=== PATIENT | male | born 1950 | race Caucasian/White ===

== ENCOUNTER 2017-06-02 06:55 | Day surgery (SDC) | payer BC, OTHER ==
[2017-06-01 15:14] VITALS: BMI 32.1
--- NOTE | 2017-06-02 08:07 | HP ---
Satellite [facility] - Chief Complaint Chief Complaint: left shoulder pain History of Present Illness: left shoulder pain, weakness, decreased ROM History Source: Patient Limitations to Obtaining History: No Limitations - Past Medical History Allergies/Adverse Reactions: Allergies Allergy/AdvReac Type Severity Reaction Status Date / Time No Known Allergies Allergy Verified 06/01/17 15:14 - Current Medications Current Medications: Home Medications Medication Instructions Recorded Olmesartan Medoxomil [Benicar -] 20 mg PO DAILY 06/01/14 Atorvastatin Ca [Lipitor] 20 mg PO HS 06/01/17 Ranitidine HCl [Zantac] 150 mg PO BID 06/01/17 Satellite Physical Exam - Physical Examination Vital Signs: Vital Signs Period Temp Pulse Resp BP Sys/De La O Pulse Ox Last 24 Hr 97.4 F-97.4 F 89-89 20-20 137-137/80-80 97 General Appearance: Well Nourished ENT: Clear Lung: Clear to auscultation Heart: Regular rate & rhythm Breasts: Soft Abdomen: Soft Extremities: No edema Satellite Impression/Plan - Impression/Plan Impression: left shoulder impingement, RTC tear Operative Procedure: left shoulder arthroscopy, decompression, RTC repair Date to be Performed: 06/02/17
[2017-06-02] MEDS ORDERED: ROCURONIUM BROMIDE 50 MG/5 ML VIAL ONE (08:35)
[2017-06-02] MEDS ORDERED: PROPOFOL 20 ML ONE (08:35)
[2017-06-02] MEDS ORDERED: LIDOCAINE HCL/PF 2% SDV 5ML VIAL ONE (08:37)
[2017-06-02] MEDS ORDERED: ROPIVACAINE HCL 0.5% 30ML VIAL ONE (08:38)
[2017-06-02] MEDS ORDERED: MIDAZOLAM HCL 2 MG/2 ML SINGLE DOSE VIAL ONE ×2 (08:39)
[2017-06-02] MEDS ORDERED: ceFAZolin SODIUM 1 GM VIAL IVPB ONE (09:45)
[2017-06-02] MEDS ORDERED: ceFAZolin SODIUM 1 GM VIAL ONE (09:50)
[2017-06-02] MEDS ORDERED: DEXAMETHASONE SOD PHOSPHATE 4 MG/1 ML VIAL ONE (09:51)
[2017-06-02] MEDS ORDERED: ePHEDrine SULFATE 50 MG/1 ML AMPULE ONE ×2 (10:04→10:30)
[2017-06-02] MEDS ORDERED: ONDANSETRON 4 MG/2 ML VIAL IVPUSH PRN (10:06)
[2017-06-02] MEDS ORDERED: LACTATED RINGERS SOLUTION 1,000 ML IV SCH (10:15)
--- NOTE | 2017-06-02 11:06 | OP ---
Operative Note - Note: Operative Date: 06/02/17 Pre-Operative Diagnosis: left shoulder impingement, RTC tear Operation: left shoulder arthroscopy, decompression, RTC repair Implants: Arthrex Swivel Lock x 1, Fiber Wire x 3 Surgeon: Adi Matta Image Processing Engineer: Hitesh Friedman Anesthesiologist/CLOTH DYE RANGE OPERATOR: Ashley Maxwell Anesthesia: General Specimens Removed: shavings Estimated Blood Loss (mls): 50 Drains, Volume Out (mls): 0 Blood Volume Replaced (mls): 0 Fluid Volume Replaced (mls): 1,000 Operative Report Dictated: Yes
[2017-06-02 14:02] VITALS: PULSE 94; TEMP 98.5
[2017-06-02 14:05] VITALS: BP 133/74
--- NOTE | 2017-06-02 16:58 | OP ---
DATE OF OPERATION: 06/02/2017 PREOPERATIVE DIAGNOSIS: Left shoulder subacromial impingement and rotator cuff tear. POSTOPERATIVE DIAGNOSIS: Left shoulder subacromial impingement and rotator cuff tear. PROCEDURE: Left shoulder arthroscopy, subacromial decompression, and arthroscopic rotator cuff repair. SURGEON: Adi Matta M.D. DOT ETCHER APPRENTICE: Hitesh Friedman M.D. SECOND VOLUNTEER RECRUITMENT COORDINATOR: Cayla Khan NURSE RETAIL WIRELESS ASSOCIATE: , PARK INTERPRETIVE RANGER ANESTHESIA: Left interscalene block with LMA anesthesia. DRAINS: None. COMPLICATIONS: None. BLOOD GIVEN: None. FLUID REPLACEMENT: 1000 mL. BLOOD LOSS: 50 mL. INDICATION: This patient is a 66-year-old male with a preoperative diagnosis of left shoulder impingement syndrome and rotator cuff tear. After understanding the potential risks, complications, alternatives, benefits to surgery versus nonsurgical treatment, the patient elected to pursue this procedure. PROCEDURE: The patient was brought to the operating room, peripheral IV placed, IV sedation given. Left scalene block was performed. 2 g of IV Ancef were given. Patient was placed into the beach chair position with ample padding throughout. The left upper extremity was prepped and draped in a sterile fashion. Bony landmarks marked out with marking pin. A manipulation under anesthesia was done. It was not particularly tight. A posterior portal was established. A diagnostic glenohumeral arthroscopy is performed. Overall, the patient had an undersurface tear of the rotator cuff from the glenohumeral side. The patient's biceps tendon, glenoid, labrum, and humeral head all looked good. Therefore, our attention turned to the subacromial space. Lateral portal was established under direct visualization using a spinal needle. A number 11 scalpel blade was utilized to cut into the skin and a clean cannula introduced in the subacromial space. Patient had tremendous amount of inflammatory subacromial bursitis. This was debrided with the Arthrocare wand and the straight shaver after the extensive debridement of all the bursitis. This was revealed a large subacromial bony spur. It was very anterior. This was taken down with a 5.5-mm oval bur, and straightened up in reverse and with the shaver. After the bony and soft tissue decompression was performed, we were able to better visualize the top portion of the rotator cuff. The entire infraspinatus was intact. The supraspinatus seemed to be intact. His tear was easily anterior most portion of the supraspinatus. We were able to clean up the edges using the Scorpion needle passer to pass 3 Fiberwire sutures. We were able to pull this more anterior after we established a more anterior portal for excellent mobilization and complete coverage of the humeral head. We then looked the 6 Fiberwire tails through the Swivelock anchor, and put the Swivelock down into the more anterior rotator cuff landing site. The tails were cut, the area was inspected and looked quite good. There was complete coverage of the humeral head and the rotator cuff moved as a unit with motion of the arm. The area was copiously irrigated and washed out. All instrumentation and debris were removed, all excess saline removed, the arthroscopy port was closed with 3-0 nylon sutures covered with Aquacel. The patient was placed into a shoulder immobilizer, taken down out of the beach chair position, extubated. Total operative time was about 1 hour, there were no complications during the case. Patient was brought to the ambulatory recovery room in stable condition. Jeremias [id number]
--- NOTE | 2017-06-03 14:13 | PATH ---
Surgical Pathology Report Patient Name: ALYSHA CARVER Med. Rec. #: [id number] /Age/Gender: 1950 (Age: 66) / M Account: [id number] Location: [facility] SURGICAL Taken: 06/02/2017 Received: 06/02/2017 Reported: 06/03/2017 Physicians: Jeremias Null M.D. Specimen(s) Received LEFT SHOULDER SHAVINGS Clinical History Left rotator cuff tear Final Diagnosis SHOULDER SHAVINGS, LEFT, ARTHROSCOPY AND ROTATOR CUFF REPAIR:FRAGMENTS OF BENIGN FIBROCARTILAGINOUS TISSUE, SYNOVIUM, BONE, ADIPOSE TISSUE AND SKELETAL MUSCLE. Electronically Signed Fátima Santiago M.D. Gross Description Received in formalin, labeled "left shoulder shavings," is a 3.5 x 2.5 x 0.4 cm. aggregate of cuba-yellow soft tissue fragments. A dermatology sales representative portion is submitted in one cassette. 06/02/201706/02/2017
== END 2017-06-02 13:20 | disposition home or self-care (01) ==
LOC: JASU-SURG 06:55
PROVIDERS: ATTEND Orthopaedic Surgery
PROC: 0LQ24ZZ Repair Left Shoulder Tendon, Percutaneous Endoscopic Approach (ICD-10-PCS; 2017-06-02)
PROC: 0RNK4ZZ Release Left Shoulder Joint, Percutaneous Endoscopic Approach (ICD-10-PCS; principal; 2017-06-02 09:00)
DX: M75.42 Impingement syndrome of left shoulder (principal); M75.102 Unspecified rotator cuff tear or rupture of left shoulder, not specified as traumatic
CPT/HCPCS: 88304-TC; 94760

== ENCOUNTER 2018-10-21 15:18 | Emergency (ER) | payer OTHER, BC ==
--- NOTE | 2018-10-21 15:40 | PDOC ---
Rapid Medical Evaluation Time Seen by Provider: 10/21/18 15:36 Medical Evaluation: Allergies Allergy/AdvReac Type Severity Reaction Status Date / Time No Known Allergies Allergy Verified 06/01/17 15:14 10/21/18 15:36 HPI: Sent by PCP Dr Smith for work up of abdominal pain wants to r/o diverticulitis PE:No gross deficits ORDERS: LABS CT scan w/o PO CONTRAST Hx of Urolift 10/21/18 15:39 Discharge Disposition - Diagnosis Abdominal pain - Referrals - Patient Instructions - Post Discharge Activity
[2018-10-21 15:43] VITALS: BMI 32.6
[2018-10-21 16:40] LABS: EOS % 0.7 % (0-4.5); HEMATOCRIT 42.4 % (35.4-49); LYMPH % 11.8 % (8-40); MCH 29.2 pg (25.7-33.7); MEAN CELL VOLUME 88.6 fl (80-96); MEAN PLT VOLUME 8.9 fl (7.5-11.1); MONO % 13.8 % (3.8-10.2); NEUT % 72.7 % (42.8-82.8); PLATELET COUNT 212 K/MM3 (134-434); RBC 4.79 M/mm3 (4.00-5.60); RDW 13.9 % (11.9-15.9)
[2018-10-21 16:54] LABS: INR 1.1 (0.83-1.09)
[2018-10-21 16:59] LABS: ALBUMIN 3.5 g/dl (3.4-5.0); BILIRUBIN,TOTAL 0.6 mg/dL (0.2-1); BLOOD UREA NITROGEN 11.8 mg/dL (7-18); CALCIUM 8.9 mg/dL (8.5-10.1); POTASSIUM 4.3 mmol/L (3.5-5.1); TOT PROT 6.6 g/dl (6.4-8.2)
--- NOTE | 2018-10-21 17:17 | PDOC ---
History of Present Illness - General Chief Complaint: Pain, Acute Stated Complaint: ABDOMINAL PAIN Time Seen by Provider: 10/21/18 15:36 Past History - Past Medical History Allergies/Adverse Reactions: Allergies Allergy/AdvReac Type Severity Reaction Status Date / Time No Known Allergies Allergy Verified 06/01/17 15:14 Home Medications: Ambulatory Orders Olmesartan Medoxomil [Benicar -] 20 mg PO DAILY 06/01/14 Atorvastatin Ca [Lipitor] 20 mg PO HS 06/01/17 Ranitidine HCl [Zantac] 150 mg PO BID 06/01/17 Ciprofloxacin [Cipro -] 500 mg PO Q12H 10 Days #20 tablet 10/21/18 Cyclosporine [Restasis Multidose] 1 drop OP BID 10/21/18 Metronidazole [Flagyl] 500 mg PO TID 10 Days #30 capsule 10/21/18 Anemia: No Asthma: No Cancer: No Cardiac Disorders: No CVA: No COPD: No CHF: No Dementia: No Diabetes: No GI Disorders: Yes (acid indigestion, diverticulitis) Disorders: Yes (rx for uti) HTN: Yes Hypercholesterolemia: Yes Liver Disease: No Seizures: No Thyroid Disease: No - Surgical History Orthopedic Surgery: Yes (arthroscopy/bunion) - Suicide/Smoking/Psychosocial Hx Smoking History: Former smoker Have you smoked in the past 12 months: No If you are a former smoker, when did you quit?: 2016 Information on smoking cessation initiated: No Hx Alcohol Use: Yes (Occasional wine) Drug/Substance Use Hx: No *Physical Exam - Vital Signs Last Vital Signs Temp Pulse Resp BP Pulse Ox 98.3 F 93 H 18 142/79 98 10/21/18 15:41 10/21/18 15:41 10/21/18 15:41 10/21/18 15:41 10/21/18 15:41 ED Treatment Course - LABORATORY CBC & Chemistry Diagram: 10/21/18 14:21 10/21/18 14:21 - ADDITIONAL ORDERS Additional order review: Laboratory Results 10/21/18 10/21/18 14:21 14:21 PT with INR 13.00 INR 1.10 H Sodium 141 Potassium 4.3 Chloride 106 Carbon Dioxide 29 Anion Gap 6 L BUN 11.8 Creatinine 1.0 Est GFR (CKD-EPI)AfAm 89.23 Est GFR (CKD-EPI)NonAf 76.99 Random Glucose 101 Calcium 8.9 Total Bilirubin 0.6 AST 16 ALT 25 Alkaline Phosphatase 85 Total Protein 6.6 Albumin 3.5 Lipase 173 10/21/18 14:21 RBC 4.79 MCV 88.6 MCHC 33.0 RDW 13.9 MPV 8.9 Neutrophils % 72.7 Lymphocytes % 11.8 D Monocytes % 13.8 H Eosinophils % 0.7 Basophils % 1.0 Medical Decision Making - Medical Decision Making 10/21/18 17:44 Mr. Negron is a 68 y/o M with hx diverticulitis presenting from his outpatient PCP office for 1 week of left sided superpubic pain, concerning for diverticulitis flare. Plan for UA, CBC w/diff, and CT abdomen pelvis to evaluate for acute diverticulitis. Stable vitals, afebrile, feeling well with no pain at this time, plan for discharge after CT with close outpatient follow up for likely uncomplicated diverticulitis. *DC/Admit/Observation/Transfer Diagnosis at time of Disposition: Diverticulitis - Discharge Dispostion Disposition: HOME Condition at time of disposition: Good Decision to Admit order: No - Prescriptions Prescriptions: Ciprofloxacin [Cipro -] 500 mg PO Q12H 10 Days #20 tablet Metronidazole [Flagyl] 500 mg PO TID 10 Days #30 capsule - Referrals Referrals: Jose Merlos MD [Staff Physician] - - Patient Instructions Printed Discharge Instructions: DI for Diverticulitis Additional Instructions: You were evaluated in the Emergency Department by Dr. Joshi and Dr. Melendez for pain in your lower abdomen after your outpatient doctor was concerned for acute diverticulitis. We conducted a medical history and physical exam, as well as ordered bloodwork to look for signs of infection. We also conducted a CT scan of your abdomen to evaluate for diverticulitis. The CT scan showed diverticulitis. We are treating you with ten days of antiobiotics, please take them as directed. Make sure to avoid any alcohol intake while you are on these antibiotics. Please follow up with your GI doctor next week. Further, your CT also showed a small lesion on your liver, please follow up with your GI doctor for that in the next three months. Please return to the emergency department if you develop any fevers, chills, worsening abdominal pain, or develop any other symptoms that you find concerning. - Post Discharge Activity
--- NOTE | 2018-10-21 18:05 | PDOC ---
Documentation entered by Hailey Nguyễn SCRIBE, acting as scribe for Brenda Melendez MD. Brenda Melendez MD: This documentation has been prepared by the Delma holt Sammi, SCRIBE, under my direction and personally reviewed by me in its entirety. I confirm that the documentation accurately reflects all work, treatment, procedures, and medical decision making performed by me. Attending Attestation - Resident Resident Name: MadelynChaim - ED Attending Attestation I have performed the following: I have examined & evaluated the patient, The case was reviewed & discussed with the resident, I agree w/resident's findings & plan, Exceptions are as noted - HPI HPI: 10/21/18 18:04 The patient is a 68 year old male, with a significant PMH of , who was sent to the emergency department by PCP Dr. Smith for CT of abdomen to rule out diverticulitis. The patient complains of left lower quadrant pain. He notes last episode of diverticulitis with antibiotics several years ago. The patient does not recall how many episodes of diverticulitis he has experienced. Denies fever. - Physicial Exam PE: 10/21/18 17:43 GENERAL: The patient is in no acute distress. ENT: Ears normal, nares patent, oropharynx clear without exudates. Moist mucous membranes. NECK: Normal range of motion, supple LUNGS: Breath sounds equal, clear to auscultation bilaterally. No wheezes, and no crackles. HEART:Regular rate and rhythm, normal S1 and S2 without murmur, rub or gallop. ABDOMEN: Soft, protuberant, LLQ tenderness, no involuntary guarding or rebound EXTREMITIES: Normal range of motion, no edema. NEUROLOGICAL: Cranial nerves II through XII grossly intact. Normal speech. No focal neurological deficits. SKIN: Warm, Dry, normal turgor, no rashes or lesions noted. - Medical Decision Making 10/21/18 17:58 68 yo M h/o HTN prior episodes of diverticulitis who presents to the ER with a complaint of LLQ Pain Pt has had diverticulitis in the past No fevers or chills DD: diverticulitis (complicated vs. uncomplicated), colitis, unlikely UTI, obstructing stone or pyelonephritis Will do: Labs UA CT abd and pelvis Re assess 10/21/18 18:00 Laboratory Tests 10/21/18 10/21/18 10/21/18 14:21 14:21 14:21 WBC 9.0 Hgb 14.0 Hct 42.4 Plt Count 212 INR 1.10 H BUN 11.8 Creatinine 1.0 10/21/18 18:05 CT pending Signed out to Overnight team
[2018-10-21 18:13] LABS: EPI CELLS 0.2 /HPF (0-5/HPF); HYALINE CASTS 0 /lpf (0-8); PH,URINE 8.5 (5.0-8.0); URINE APPEARANCE CLOUDY; URINE BACTERIA 1.7 /hpf (NEGATIVE); URINE BILIRUBIN NEGATIVE (NEGATIVE); URINE COLOR YELLOW; URINE GLUCOSE (UA) NEGATIVE (NEGATIVE); URINE KETONE NEGATIVE (NEGATIVE); URINE LEUK ESTERASE TRACE (NEGATIVE); URINE NITRITE NEGATIVE (NEGATIVE); URINE PROTEIN NEGATIVE (NEGATIVE); URINE RBC 5 /hpf (0-4); URINE UROBILINOGEN 0.2 mg/dL (0.2-1.0); URINE WBC 2 /hpf (0-5)
[2018-10-21 22:23] VITALS: TEMP 98.4
[2018-10-21 22:34] VITALS: BP 148/73; PULSE 82
--- NOTE | 2018-10-23 13:43 | EKG ---
Test Reason : Blood Pressure : / mmHG Vent. Rate : 087 BPM Atrial Rate : 087 BPM P-R Int : 174 ms QRS Dur : 094 ms QT Int : 366 ms P-R-T Axes : 050 038 054 degrees QTc Int : 440 ms NORMAL SINUS RHYTHM LEFT ATRIAL ENLARGEMENT BORDERLINE ECG WHEN COMPARED WITH ECG OF 01-JUN-2014 17:05, NO SIGNIFICANT CHANGE WAS FOUND Confirmed by MD HELEN, MICKEY ([id number]) on 10/23/2018 1:42:31 PM Referred By: Confirmed By:MICKEY CERVANTES MD
== END 2018-10-21 22:36 | disposition home or self-care (01) ==
LOC: JER 15:18
DX: K57.32 Diverticulitis of large intestine without perforation or abscess without bleeding (principal); I10 Essential (primary) hypertension; E78.00 Pure hypercholesterolemia, unspecified; K21.9 Gastro-esophageal reflux disease without esophagitis; Z87.440 Personal history of urinary (tract) infections
CPT/HCPCS: 36415; 74177-TC; 80053; 81003; 83690; 85025; 85610; 93005; 93010; 99282-25

== ENCOUNTER 2019-04-05 10:45 | Emergency (ER) | payer OTHER, BC ==
[2019-04-05 11:04] VITALS: BMI 30.7
[2019-04-05 13:14] LABS: EOS % 0.7 % (0-4.5); HEMATOCRIT 44.6 % (35.4-49); HEMOGLOBIN 14.9 GM/dL (11.7-16.9); LYMPH % 13.5 % (8-40); MCH 29.6 pg (25.7-33.7); MCHC 33.4 g/dl (32.0-35.9); MEAN CELL VOLUME 88.6 fl (80-96); MEAN PLT VOLUME 8.8 fl (7.5-11.1); MONO % 9.1 % (3.8-10.2); NEUT % 75.7 % (42.8-82.8); PH,URINE 8.5 (5.0-8.0); PLATELET COUNT 298 K/MM3 (134-434); RBC 5.04 M/mm3 (4.00-5.60); RDW 14.1 % (11.9-15.9); URINE APPEARANCE TURBID; URINE BILIRUBIN NEGATIVE (NEGATIVE); URINE COLOR YELLOW; URINE GLUCOSE (UA) NEGATIVE (NEGATIVE); URINE KETONE NEGATIVE (NEGATIVE); URINE LEUK ESTERASE NEGATIVE (NEGATIVE); URINE NITRITE NEGATIVE (NEGATIVE); URINE PROTEIN NEGATIVE (NEGATIVE); URINE UROBILINOGEN 0.2 mg/dL (0.2-1.0); WHITE BLOOD COUNT 7.9 K/mm3 (4.0-10.0)
--- NOTE | 2019-04-05 13:34 | PDOC ---
Documentation entered by Zaida Jimenes SCRIBE, acting as scribe for Brenda Melendez MD. Brenda Melendez MD: This documentation has been prepared by the Jalil holt Xhesika, SCRIBE, under my direction and personally reviewed by me in its entirety. I confirm that the documentation accurately reflects all work, treatment, procedures, and medical decision making performed by me. History of Present Illness - General Chief Complaint: Pain Stated Complaint: LOWER ABD PAIN Time Seen by Provider: 04/05/19 12:35 History Source: Patient Exam Limitations: No Limitations - History of Present Illness Initial Comments: 04/05/19 12:54 The patient is a 68 year old male, with a significant PMH of diverticulitis and high cholesterol who presents to the emergency department for left lower quadrant abdominal pain for several days. Patient called Dr. Merlos on Wednesday03/04/19, and was prescribed abx for diverticulitis. Pt reports loose stools and severe pain this morning, promoting his arrival to the ED. He notes his symptoms are similar to his previous diverticulitis. The patient denies chest pain, shortness of breath, headache and dizziness. Denies fever, chills, cough, nausea, vomiting, and constipation. Denies dysuria , frequency, urgency and hematuria. Allergies: NKDA PCP: Fátima Hernandez Past History - Past Medical History Allergies/Adverse Reactions: Allergies Allergy/AdvReac Type Severity Reaction Status Date / Time No Known Allergies Allergy Verified 04/05/19 11:01 Home Medications: Ambulatory Orders Atorvastatin Ca [Lipitor] 10 mg PO HS 06/01/17 Metronidazole [Flagyl] 500 mg PO TID 10 Days #30 capsule 10/21/18 Bifidobacterium Infantis [Align] 10.5 mg PO DAILY #30 tab.chew 04/05/19 Famotidine 20 mg PO DAILY 04/05/19 Levofloxacin [Levaquin] 500 mg PO DAILY 04/05/19 Anemia: No Asthma: No Cancer: No Cardiac Disorders: No CVA: No COPD: No CHF: No Dementia: No Diabetes: No GI Disorders: Yes (acid indigestion, diverticulitis) Disorders: Yes (rx for uti) HTN: Yes Hypercholesterolemia: Yes Liver Disease: No Seizures: No Thyroid Disease: No - Surgical History Orthopedic Surgery: Yes (arthroscopy/bunion) - Psycho Social/Smoking Cessation Hx Smoking History: Never smoked Have you smoked in the past 12 months: No If you are a former smoker, when did you quit?: 2016 Information on smoking cessation initiated: No Hx Alcohol Use: No Drug/Substance Use Hx: No Review of Systems - Review of Systems Able to Perform ROS?: Yes Comments:: 04/05/19 12:55 GENERAL/CONSTITUTIONAL: No fever or chills. No weakness. HEAD, EYES, EARS, NOSE AND THROAT: No change in vision. No ear pain or discharge. No sore throat. CARDIOVASCULAR: No chest pain or shortness of breath. RESPIRATORY: No cough, wheezing, or hemoptysis. GASTROINTESTINAL: + diarrhea. No nausea, vomiting, or constipation. GENITOURINARY: No dysuria, frequency, or change in urination. MUSCULOSKELETAL: + left lower quadrant abdominal pain. No joint or muscle swelling or pain. No neck or back pain. SKIN: No rash NEUROLOGIC: No headache, vertigo, loss of consciousness, or change in strength/ sensation. ENDOCRINE: No increased thirst. No abnormal weight change. HEMATOLOGIC/LYMPHATIC: No anemia, easy bleeding, or history of blood clots. ALLERGIC/IMMUNOLOGIC: No hives or skin allergy. *Physical Exam - Vital Signs Last Vital Signs Temp Pulse Resp BP Pulse Ox 98.5 F 89 17 144/91 98 04/05/19 11:02 04/05/19 11:02 04/05/19 11:02 04/05/19 11:02 04/05/19 12:13 - Physical Exam 04/05/19 12:56 GENERAL: The patient is in no acute distress. HEAD: Normal with no signs of trauma. EYES: PERRLA, EOMI, sclera anicteric, conjunctiva clear. ENT: Ears normal, nares patent, oropharynx clear without exudates. Moist mucous membranes. NECK: Normal range of motion, supple without lymphadenopathy, JVD, or masses. LUNGS: Breath sounds equal, clear to auscultation bilaterally. No wheezes, and no crackles. HEART:Regular rate and rhythm, normal S1 and S2 without murmur, rub or gallop. ABDOMEN: + LLQ abdominal tenderness to palpation. Soft, normoactive bowel sounds. No guarding, no rebound. No masses palpable. EXTREMITIES: Normal range of motion, no edema. No clubbing or cyanosis. No erythema, or tenderness. NEUROLOGICAL: Cranial nerves II through XII grossly intact. Normal speech. No focal neurological deficits. MUSCULOSKELETAL: Back non-tender to palpation, no CVA tenderness SKIN: Warm, Dry, normal turgor, no rashes or lesions noted. ED Treatment Course - LABORATORY CBC & Chemistry Diagram: 04/05/19 13:00 04/05/19 13:00 Medical Decision Making - Medical Decision Making 04/05/19 15:42 68-year-old male with a history of diverticulitis presenting to the emergency department due to left lower quadrant tenderness. Symptoms have been present since last week. Spoke with his GI doctor 3 days ago who started antibiotics. Patient increased abdominal pain, loose stools today, which prompted his visit to the ER No fevers or chills Examination reveals left lower quadrant tenderness No voluntary guarding or rebound 04/05/19 15:43 Laboratory Tests 04/05/19 04/05/19 04/05/19 13:00 13:00 13:00 WBC 7.9 Hgb 14.9 Hct 44.6 Plt Count 298 D BUN 15.1 Creatinine 1.0 Urine Ketones Negative Urine Blood Negative Ur Leukocyte Esterase Negative CT performed: Demonstrates uncomplicated sigmoid diverticulitis Call placed to patient's GI doctor We will plan to discharge home Continue antibiotics as already prescribed Would start Align Clinical impression: Acute uncomplicated diverticulitis, initial presentation Case reviewed with pt GI doctor after he left the ER Pt told to follow up with Dr Mai as an outpatient Return to the ER for fevers, chills, worsening abdominal pain, inability to tolerate po Discharge - Discharge Information Problems reviewed: Yes Clinical Impression/Diagnosis: Diverticulitis Condition: Stable Disposition: HOME - Admission No - Additional Discharge Information Prescriptions: Bifidobacterium Infantis [Align] 10.5 mg PO DAILY #30 tab.chew - Follow up/Referral Referrals: Fátima Diaz MD [Primary Care Provider] - - Patient Discharge Instructions Patient Printed Discharge Instructions: DI for Diverticulitis Additional Instructions: Mr. Negron, Thank you for coming into the emergency department today Please continue taking antibiotics as prescribed Please also start taking a probiotic like Align Please monitor yourself for fevers or chills, worse abdominal pain Please be sure to follow-up with Dr. Merlos in the office Please feel free to return to the ER for any other concerns or complaints - Post Discharge Activity
[2019-04-05 13:50] LABS: ALBUMIN 3.8 g/dl (3.4-5.0); BILIRUBIN,TOTAL 0.5 mg/dL (0.2-1); BLOOD UREA NITROGEN 15.1 mg/dL (7-18); CALCIUM 9.7 mg/dL (8.5-10.1); POTASSIUM 4.8 mmol/L (3.5-5.1); TOT PROT 6.9 g/dl (6.4-8.2)
[2019-04-05 16:21] VITALS: BP 129/88; PULSE 81; TEMP 98.1
== END 2019-04-05 16:23 | disposition home or self-care (01) ==
LOC: JER 10:45
DX: K57.92 Diverticulitis of intestine, part unspecified, without perforation or abscess without bleeding (principal); I10 Essential (primary) hypertension; E78.00 Pure hypercholesterolemia, unspecified; Z87.19 Personal history of other diseases of the digestive system
CPT/HCPCS: 36415; 74177-TC; 80053; 81003; 85025; 87086; 99284-25; Q9967

== ENCOUNTER 2020-03-05 06:26 | Inpatient (IN) | payer OTHER, BC ==
[2020-02-27 10:43] VITALS: BMI 32.2
[2020-03-05] MEDS ORDERED: CELECOXIB 200 MG CAPSULE PO ONE (07:26)
[2020-03-05] MEDS ORDERED: TRANEXAMIC ACID 1000 MG/10 ML VIAL IVPUSH ONE (07:26)
[2020-03-05] MEDS ORDERED: CEFAZOLIN 3 GM in DEXTROSE 5%-WATER - 100 ML IVPB ONE (07:26)
[2020-03-05] MEDS ORDERED: ceFAZolin SODIUM 1 GM VIAL ONE ×3 (07:35→17:41)
[2020-03-05] MEDS ORDERED: VANCOMYCIN 1,000 MG VIAL (RESTRICTED TO ID ONLY) ONE (07:35)
[2020-03-05] MEDS ORDERED: BUPIVACAINE LIPOSOME/PF (EXPAREL) 266 MG/20 ML VIAL ONE (08:42)
[2020-03-05] MEDS ORDERED: MIDAZOLAM HCL 2 MG/2 ML SINGLE DOSE VIAL ONE ×3 (08:42→10:14)
[2020-03-05] MEDS ORDERED: SODIUM CHLORIDE 0.9% P/F 10 ML VIAL IJ ONE ×2 (08:43→10:35)
[2020-03-05] MEDS ORDERED: BUPIVACAINE HCL/PF 0.5% (5MG/ML) 10 ML VIAL ONE (09:17)
[2020-03-05] MEDS ORDERED: SUCCINYLCHOLINE CHLORIDE 200 MG/10 ML SYRINGE ONE (09:18)
[2020-03-05] MEDS ORDERED: PROPOFOL 20 ML ONE ×3 (09:18)
[2020-03-05] MEDS ORDERED: MAGNESIUM HYDROX 2400MG/30ML ORAL SUSPENSION 30 ML CUP PO PRN (10:09)
[2020-03-05] MEDS ORDERED: ONDANSETRON 4 MG/2 ML VIAL IVPUSH PRN ×3 (10:09→12:10)
[2020-03-05] MEDS ORDERED: MAG HYDROX/AL HYDROX/SIMETH 30 ML UNIT-DOSE CUP PO PRN (10:09)
[2020-03-05] MEDS ORDERED: ONDANSETRON 4 MG/2 ML VIAL ONE (10:11)
[2020-03-05] MEDS ORDERED: TRANEXAMIC ACID 1000 MG/10 ML VIAL ONE (10:11)
[2020-03-05] MEDS ORDERED: DEXAMETHASONE SOD PHOSPHATE 4 MG/1 ML VIAL ONE (10:11)
[2020-03-05] MEDS ORDERED: LACTATED RINGERS SOLUTION 1,000 ML IV SCH (10:15)
[2020-03-05] MEDS ORDERED: ePHEDrine SULFATE 50 MG/1 ML AMPULE ONE (10:34)
[2020-03-05] MEDS ORDERED: PROMETHAZINE HCL 25 MG/1 ML VIAL IVPUSH PRN (11:58)
[2020-03-05] MEDS: oxyCODONE HCL 5 MG TABLET PO PRN ×3 (15:37→21:15)
[2020-03-05] MEDS: ACETAMINOPHEN 325 MG TABLET (FP) PO SCH ×2 (15:38→18:04)
[2020-03-05] MEDS ORDERED: DEXTROSE 5%-WATER 100 ML IVPB ONE (17:41)
[2020-03-05] MEDS: CEFAZOLIN 3 GM in DEXTROSE 5%-WATER 100 ML IVPB SCH (17:54)
[2020-03-05] MEDS ORDERED: CEFAZOLIN 3 GM in DEXTROSE 5%-WATER - 100 ML IVPB SCH (18:00)
[2020-03-05] MEDS: SENNOSIDES/DOCUSATE COMBO (SENNA PLUS) TABLET (UD) PO SCH (21:15)
[2020-03-05] MEDS: ATORVASTATIN CA 20 MG TABLET (FP) PO SCH (21:15)
[2020-03-05] MEDS: oxyCODONE HCL 10 MG SUSTAINED ACTING TABLET PO SCH (21:16)
[2020-03-06] MEDS ORDERED: DEXTROSE 5%-WATER 100 ML IVPB ONE (01:41)
[2020-03-06] MEDS ORDERED: ceFAZolin SODIUM 1 GM VIAL ONE (01:41)
[2020-03-06] MEDS: oxyCODONE HCL 5 MG TABLET PO PRN ×3 (01:49→15:38)
[2020-03-06] MEDS: CEFAZOLIN 3 GM in DEXTROSE 5%-WATER 100 ML IVPB SCH (01:50)
[2020-03-06] MEDS: ACETAMINOPHEN 325 MG TABLET (FP) PO SCH ×4 (01:55→18:56)
[2020-03-06 07:55] LABS: HEMATOCRIT 40.4 % (35.4-49); MCH 29.1 pg (25.7-33.7); MCHC 32.2 g/dl (32.0-35.9); MEAN CELL VOLUME 90.2 fl (80-96); MEAN PLT VOLUME 8.3 fl (7.5-11.1); PLATELET COUNT 270 K/MM3 (134-434); RBC 4.48 M/mm3 (4.00-5.60); RDW 12.7 % (11.9-15.9); WHITE BLOOD COUNT 10.6 K/mm3 (4.0-10.8)
[2020-03-06] MEDS: FERROUS SO4 325 MG TABLET (FP) PO SCH (09:11)
[2020-03-06] MEDS: ASPIRIN 325 MG TABLET PO SCH (09:11)
[2020-03-06] MEDS: oxyCODONE HCL 10 MG SUSTAINED ACTING TABLET PO SCH ×2 (09:12→21:15)
[2020-03-06] MEDS: PANTOPRAZOLE 40 MG TABLET PO SCH (09:12)
[2020-03-06] MEDS: LOSARTAN POTASSIUM 50 MG TABLET PO SCH (09:12)
[2020-03-06] MEDS: MULTIVITAMINS (DAILY MVI) TABLET (FP) PO SCH (09:12)
[2020-03-06] MEDS: SENNOSIDES/DOCUSATE COMBO (SENNA PLUS) TABLET (UD) PO SCH ×2 (09:12→21:17)
[2020-03-06] MEDS ORDERED: FAMOTIDINE 20 MG TABLET PO SCH ×2 (10:00)
[2020-03-06] MEDS: ATORVASTATIN CA 20 MG TABLET (FP) PO SCH (21:16)
[2020-03-06] MEDS ORDERED: LOCK ITEM NR ONE (23:52)
[2020-03-07] MEDS: ACETAMINOPHEN 325 MG TABLET (FP) PO SCH ×2 (00:20→05:39)
[2020-03-07 07:55] LABS: HEMATOCRIT 39.9 % (35.4-49); HEMOGLOBIN 13.1 GM/dl (11.7-16.9); MCHC 32.8 g/dl (32.0-35.9); MEAN CELL VOLUME 91.3 fl (80-96); MEAN PLT VOLUME 8.9 fl (7.5-11.1); PLATELET COUNT 274 K/MM3 (134-434); RBC 4.37 M/mm3 (4.00-5.60); RDW 13.1 % (11.9-15.9); WHITE BLOOD COUNT 8.9 K/mm3 (4.0-10.8)
[2020-03-07] MEDS: oxyCODONE HCL 5 MG TABLET PO PRN (08:33)
[2020-03-07] MEDS: ASPIRIN 325 MG TABLET PO SCH (08:33)
[2020-03-07 09:14] VITALS: BP 115/61; PULSE 110; TEMP 98.8
[2020-03-07] MEDS: SENNOSIDES/DOCUSATE COMBO (SENNA PLUS) TABLET (UD) PO SCH (10:31)
[2020-03-07] MEDS: LOSARTAN POTASSIUM 50 MG TABLET PO SCH (10:32)
[2020-03-07] MEDS: oxyCODONE HCL 10 MG SUSTAINED ACTING TABLET PO SCH (10:32)
[2020-03-07] MEDS: FERROUS SO4 325 MG TABLET (FP) PO SCH (10:32)
[2020-03-07] MEDS: PANTOPRAZOLE 40 MG TABLET PO SCH (10:33)
[2020-03-07] MEDS: MULTIVITAMINS (DAILY MVI) TABLET (FP) PO SCH (10:33)
== END 2020-03-07 12:30 | disposition home health service (06) | DRG 470 ==
LOC: FM/S 06:26
PROVIDERS: ADMIT Orthopaedic Surgery; ATTEND Orthopaedic Surgery
PROC: 8E0Y0CZ Robotic Assisted Procedure of Lower Extremity, Open Approach (ICD-10-PCS; 2020-03-05)
PROC: 0SRC0JA Replacement of Right Knee Joint with Synthetic Substitute, Uncemented, Open Approach (ICD-10-PCS; principal; 2020-03-05 10:17)
DX: M17.11 Unilateral primary osteoarthritis, right knee (principal); E78.5 Hyperlipidemia, unspecified; I10 Essential (primary) hypertension; K57.90 Diverticulosis of intestine, part unspecified, without perforation or abscess without bleeding
CPT/HCPCS: 36415; 73560-TC-RT-FY; 85027; 88304-TC; 88311-TC; 94760; 97010-GP; 97116-GP; 97162-GP

== ENCOUNTER 2020-06-14 06:30 | Day surgery (SDC) | payer OTHER, BC ==
[2020-06-12 14:48] VITALS: BMI 30.8
[2020-06-14 08:10] VITALS: TEMP 97.8
[2020-06-14 10:41] VITALS: BP 128/70; PULSE 82
== END 2020-06-14 10:30 | disposition home or self-care (01) ==
LOC: JASU-ENDO 06:30
PROVIDERS: ATTEND Internal Medicine Gastroenterology
PROC: 0DBL8ZX Excision of Transverse Colon, Via Natural or Artificial Opening Endoscopic, Diagnostic (ICD-10-PCS; 2020-06-14)
PROC: 0DBL8ZX Excision of Transverse Colon, Via Natural or Artificial Opening Endoscopic, Diagnostic (ICD-10-PCS; 2020-06-14)
PROC: 0DBN8ZX Excision of Sigmoid Colon, Via Natural or Artificial Opening Endoscopic, Diagnostic (ICD-10-PCS; principal; 2020-06-14 08:30)
DX: Z86.010 Personal history of colon polyps (principal); K51.50 Left sided colitis without complications; K57.92 Diverticulitis of intestine, part unspecified, without perforation or abscess without bleeding; K57.30 Diverticulosis of large intestine without perforation or abscess without bleeding; K57.31 Diverticulosis of large intestine without perforation or abscess with bleeding; D12.3 Benign neoplasm of transverse colon; D12.5 Benign neoplasm of sigmoid colon; K64.8 Other hemorrhoids; N40.0 Benign prostatic hyperplasia without lower urinary tract symptoms
CPT/HCPCS: 88305-TC; 88312-TC

== ENCOUNTER 2020-12-27 08:33 | Emergency (ER) | payer BC, OTHER ==
[2020-12-27 08:40] VITALS: BP 128/87; TEMP 97.7; BMI 29.8
[2020-12-27] MEDS ORDERED: ACETAMINOPHEN 500 MG TABLET (FP) PO ONE (09:44)
[2020-12-27] MEDS ORDERED: ACETAMINOPHEN 500 MG TABLET (FP) ONE (09:48)
[2020-12-27 10:31] LABS: EPI CELLS 5 /uL (0-25.1); HYALINE CASTS 0 /uL (0-3.1); PH,URINE >= 9.0 (5.0-8.0); URINE APPEARANCE CLEAR; URINE BACTERIA 17 /uL (0-1359); URINE BILIRUBIN NEGATIVE (NEGATIVE); URINE COLOR YELLOW; URINE GLUCOSE (UA) NEGATIVE (NEGATIVE); URINE KETONE NEGATIVE (NEGATIVE); URINE LEUK ESTERASE TRACE (NEGATIVE); URINE NITRITE NEGATIVE (NEGATIVE); URINE PROTEIN NEGATIVE (NEGATIVE); URINE RBC 1 /uL (0-23.9); URINE UROBILINOGEN 0.2 mg/dL (0.2-1.0); URINE WBC 17 /uL (0-25.8)
[2020-12-27 10:43] VITALS: PULSE 88
== END 2020-12-27 11:20 | disposition home or self-care (01) ==
LOC: JER 08:33
DX: M79.10 Myalgia, unspecified site (principal)
CPT/HCPCS: 71046-TC-FY; 76775-TC; 81003; 99284-25

== ENCOUNTER 2021-05-23 18:32 | Emergency (ER) | payer OTHER, BC ==
[2021-05-23 18:48] VITALS: TEMP 98.2; BMI 29.8
[2021-05-23 19:56] LABS: BASO % 0.6 % (0-2.0); EOS % 0.4 % (0-4.5); HEMATOCRIT 41.7 % (35.4-49); HEMOGLOBIN 14.4 GM/dL (11.7-16.9); LYMPH % 10.3 % (8-40); MCH 30.3 pg (25.7-33.7); MCHC 34.6 g/dl (32.0-35.9); MEAN CELL VOLUME 87.7 fl (80-96); MEAN PLT VOLUME 8.4 fl (7.5-11.1); MONO % 9.3 % (3.8-10.2); NEUT % 79.4 % (42.8-82.8); PLATELET COUNT 261 10^3/uL (134-434); RBC 4.75 M/mm3 (4.00-5.60); RDW 13.9 % (11.9-15.9); WHITE BLOOD COUNT 10.6 K/mm3 (4.0-10.0)
[2021-05-23 19:57] LABS: EPI CELLS 5 /uL (0-25.1); HYALINE CASTS 0 /uL (0-3.1); PH,URINE 8.5 (5.0-8.0); URINE APPEARANCE CLEAR; URINE BACTERIA 2 /uL (0-1359); URINE BILIRUBIN NEGATIVE (NEGATIVE); URINE COLOR YELLOW; URINE GLUCOSE (UA) NEGATIVE (NEGATIVE); URINE KETONE NEGATIVE (NEGATIVE); URINE LEUK ESTERASE 1+ (NEGATIVE); URINE NITRITE NEGATIVE (NEGATIVE); URINE PROTEIN NEGATIVE (NEGATIVE); URINE RBC 3 /uL (0-23.9); URINE UROBILINOGEN 0.2 mg/dL (0.2-1.0); URINE WBC 47 /uL (0-25.8)
[2021-05-23 20:14] LABS: ALBUMIN 3.9 g/dl (3.4-5.0); BLOOD UREA NITROGEN 10.4 mg/dL (7-18); CALCIUM 9.9 mg/dL (8.5-10.1)
[2021-05-23 20:17] LABS: CREATININE 1.1 mg/dL (0.55-1.3)
[2021-05-23 20:19] LABS: BILIRUBIN,TOTAL 0.6 mg/dL (0.2-1); TOT PROT 7.1 g/dl (6.4-8.2)
[2021-05-23 22:52] VITALS: BP 130/70; PULSE 88
== END 2021-05-23 22:52 | disposition home or self-care (01) ==
LOC: JER 18:32
DX: E04.1 Nontoxic single thyroid nodule (principal); W19.XXXA Unspecified fall, initial encounter; Y92.9 Unspecified place or not applicable
CPT/HCPCS: 36415; 70450-TC; 71045-TC-FY; 72125-TC; 80053; 81003; 85025; 93005; 93010; 99284-25

== ENCOUNTER 2021-08-15 04:13 | Day surgery (SDC) | payer OTHER, BC ==
[2021-08-13 13:07] VITALS: BMI 30.7
[2021-08-15] MEDS ORDERED: LIDOCAINE HCL 1% PRESERVATIVE FREE - 30ML VIAL IJ ONE (11:00)
[2021-08-15] MEDS ORDERED: IOHEXOL 180 MG/1 ML ML IJ ONE (11:02)
[2021-08-15] MEDS ORDERED: BUPIVACAINE HCL/PF 0.75% 10 ML VIAL MM ONE (11:05)
[2021-08-15 13:10] VITALS: TEMP 98.1
[2021-08-15 13:27] VITALS: BP 150/80; PULSE 80
== END 2021-08-15 11:40 | disposition home or self-care (01) ==
LOC: JASU-SURG 04:13
PROVIDERS: ATTEND Pain Medicine Pain Medicine
PROC: BR16YZZ Fluoroscopy of Lumbar Facet Joint(s) using Other Contrast (ICD-10-PCS; 2021-08-15)
PROC: 3E0T3BZ Introduction of Anesthetic Agent into Peripheral Nerves and Plexi, Percutaneous Approach (ICD-10-PCS; principal; 2021-08-15 12:30)
DX: M48.16 Ankylosing hyperostosis [Forestier], lumbar region (principal)
CPT/HCPCS: 76000-TC-FY

== ENCOUNTER 2021-09-07 12:58 | Emergency (ER) | payer OTHER, BC ==
[2021-09-07 13:02] VITALS: BMI 29.8
[2021-09-07] MEDS ORDERED: ACETAMINOPHEN 1000 MG/100 ML BAG IVPB ONE (13:59)
[2021-09-07] MEDS ORDERED: PANTOPRAZOLE SODIUM 40 MG VIAL IVPUSH ONE (14:00)
[2021-09-07] MEDS ORDERED: ACETAMINOPHEN INJECTION 100 ML IVPB ONE (14:17)
[2021-09-07] MEDS ORDERED: PANTOPRAZOLE SODIUM 40 MG VIAL ONE (14:17)
[2021-09-07 14:52] LABS: BASO % 0.5 % (0-2.0); EOS % 0.1 % (0-4.5); HEMATOCRIT 43.9 % (35.4-49); HEMOGLOBIN 14.2 GM/dL (11.7-16.9); LYMPH % 8.3 % (8-40); MCH 28.5 pg (25.7-33.7); MCHC 32.4 g/dl (32.0-35.9); MEAN CELL VOLUME 87.8 fl (80-96); MEAN PLT VOLUME 8.4 fl (7.5-11.1); NEUT % 79.1 % (42.8-82.8); PLATELET COUNT 319 10^3/uL (134-434); WHITE BLOOD COUNT 11.3 K/mm3 (4.0-10.0)
[2021-09-07 14:55] LABS: EPI CELLS 8 /uL (0-25.1); HYALINE CASTS 3 /uL (0-3.1); URINE APPEARANCE TURBID; URINE BACTERIA 13 /uL (0-1359); URINE BILIRUBIN NEGATIVE (NEGATIVE); URINE COLOR YELLOW; URINE GLUCOSE (UA) NEGATIVE (NEGATIVE); URINE KETONE NEGATIVE (NEGATIVE); URINE LEUK ESTERASE TRACE (NEGATIVE); URINE NITRITE NEGATIVE (NEGATIVE); URINE PROTEIN NEGATIVE (NEGATIVE); URINE RBC 32 /uL (0-23.9); URINE WBC 16 /uL (0-25.8)
[2021-09-07 15:04] LABS: INR 1.21 (0.83-1.09)
[2021-09-07] MEDS ORDERED: MAGNESIUM CITRATE 300 ML BOTTLE PO ONE (15:07)
[2021-09-07] MEDS ORDERED: MAGNESIUM CITRATE 300 ML BOTTLE ONE (15:12)
[2021-09-07 15:15] LABS: ALBUMIN 3.3 g/dl (3.4-5.0); BLOOD UREA NITROGEN 12.5 mg/dL (7-18)
[2021-09-07 15:18] LABS: CREATININE 0.9 mg/dL (0.55-1.3)
[2021-09-07 15:20] LABS: BILIRUBIN,TOTAL 0.9 mg/dL (0.2-1); TOT PROT 6.8 g/dl (6.4-8.2)
[2021-09-07] MEDS ORDERED: metroNIDAZOLE 500 MG TABLET PO ONE (18:27)
[2021-09-07] MEDS ORDERED: CIPROFLOXACIN 500 MG TABLET (RESTRICTED TO ID) PO ONE (18:27)
[2021-09-07 18:47] VITALS: BP 140/88; PULSE 89; TEMP 97.9
== END 2021-09-07 18:48 | disposition home or self-care (01) ==
LOC: JER 12:58
PROC: 3E033GC Introduction of Other Therapeutic Substance into Peripheral Vein, Percutaneous Approach (ICD-10-PCS; principal; 2021-09-07)
DX: K57.92 Diverticulitis of intestine, part unspecified, without perforation or abscess without bleeding (principal)
CPT/HCPCS: 36415; 74176-TC; 80053; 81003; 83690; 85025; 85610; 99285-25

== ENCOUNTER 2021-09-18 17:19 | Inpatient (IN) | payer OTHER, BC ==
[2021-09-18 17:43] VITALS: BMI 29.7
[2021-09-18 21:22] LABS: BASO % 0.4 % (0-2.0); EOS % 0.2 % (0-4.5); HEMATOCRIT 40.2 % (35.4-49); HEMOGLOBIN 13.6 GM/dL (11.7-16.9); LYMPH % 7.4 % (8-40); MCH 28.8 pg (25.7-33.7); MCHC 33.9 g/dl (32.0-35.9); MEAN CELL VOLUME 84.9 fl (80-96); MEAN PLT VOLUME 8.1 fl (7.5-11.1); MONO % 9.1 % (3.8-10.2); NEUT % 82.9 % (42.8-82.8); PLATELET COUNT 383 10^3/uL (134-434); RBC 4.73 M/mm3 (4.00-5.60)
[2021-09-18 21:31] LABS: EPI CELLS >36 /uL (0-25.1); HYALINE CASTS 6 /uL (0-3.1); PH,URINE 6.5 (5.0-8.0); URINE APPEARANCE CLEAR; URINE BACTERIA 20 /uL (0-1359); URINE BILIRUBIN NEGATIVE (NEGATIVE); URINE COLOR DK YELLOW; URINE GLUCOSE (UA) NEGATIVE (NEGATIVE); URINE KETONE 2+ (NEGATIVE); URINE LEUK ESTERASE 2+ (NEGATIVE); URINE NITRITE NEGATIVE (NEGATIVE); URINE PROTEIN NEGATIVE (NEGATIVE); URINE RBC 12 /uL (0-23.9); URINE UROBILINOGEN 0.2 mg/dL (0.2-1.0); URINE WBC 267 /uL (0-25.8)
[2021-09-18 21:34] LABS: INR 1.39 (0.83-1.09)
[2021-09-18 21:37] LABS: ACTIVATED PTT 30.1 SECONDS (25.2-36.5)
[2021-09-18 21:45] LABS: ALBUMIN 3.1 g/dl (3.4-5.0); MAGNESIUM 2.4 mg/dL (1.8-2.4)
[2021-09-18 21:48] LABS: CREATININE 0.9 mg/dL (0.55-1.3)
[2021-09-18 21:49] LABS: BILIRUBIN,TOTAL 0.5 mg/dL (0.2-1); TOT PROT 6.5 g/dl (6.4-8.2)
[2021-09-19] MEDS ORDERED: PIPERACILLIN/TAZOB 3.375 GM 3.375 GM/50 ML BAG IVPB ONE (03:24)
[2021-09-19] MEDS: PIPERACILLIN/TAZOB 3.375 GM 3.375 GM in DEXTROSE 5%-WATER - 50 ML IVPB SCH ×2 (03:27→18:58)
[2021-09-19] MEDS ORDERED: DEXTROSE 5%-NORMAL SALINE 1,000 ML IV SCH (05:15)
[2021-09-19] MEDS: DEXTROSE 5%-NORMAL SALINE 1,000 ML IV SCH (06:42)
[2021-09-19] MEDS ORDERED: PIPERACILLIN/TAZOB 3.375 GM 3.375 GM in DEXTROSE 5%-WATER - 50 ML IVPB SCH ×2 (06:42→10:00)
[2021-09-19] MEDS ORDERED: ENOXAPARIN NA (PORCINE) 40 MG/0.4 ML DISP.SYRIN SQ SCH (10:00)
[2021-09-19] MEDS ORDERED: DEXTROSE 5%-WATER - 50 ML IVPB ONE ×2 (12:24→18:33)
[2021-09-19] MEDS ORDERED: PIPERACILLIN/TAZOBACTAM 3.375 GM VIAL IVPB ONE ×2 (12:24→18:33)
[2021-09-19 17:01] LABS: BASO % 0.4 % (0-2.0); EOS % 0.2 % (0-4.5); HEMATOCRIT 38.8 % (35.4-49); HEMOGLOBIN 13.1 GM/dL (11.7-16.9); MCH 28.5 pg (25.7-33.7); MCHC 33.8 g/dl (32.0-35.9); MEAN CELL VOLUME 84.3 fl (80-96); MEAN PLT VOLUME 7.7 fl (7.5-11.1); MONO % 11.2 % (3.8-10.2); NEUT % 80.2 % (42.8-82.8); PLATELET COUNT 346 10^3/uL (134-434); WHITE BLOOD COUNT 7.4 K/mm3 (4.0-10.0)
[2021-09-19 17:11] LABS: INR 1.36 (0.83-1.09); PROTHROMBIN TIME (PATIENT) 15.7 SEC (9.7-13.0)
[2021-09-19 17:16] LABS: BLOOD UREA NITROGEN 7.4 mg/dL (7-18); CALCIUM 9.3 mg/dL (8.5-10.1)
[2021-09-19 17:20] LABS: CREATININE 0.9 mg/dL (0.55-1.3)
[2021-09-20] MEDS ORDERED: DEXTROSE 5%-WATER - 50 ML IVPB ONE ×3 (01:54→16:44)
[2021-09-20] MEDS ORDERED: PIPERACILLIN/TAZOBACTAM 3.375 GM VIAL IVPB ONE ×3 (01:54→16:44)
[2021-09-20] MEDS: PIPERACILLIN/TAZOB 3.375 GM 3.375 GM in DEXTROSE 5%-WATER - 50 ML IVPB SCH ×3 (02:08→17:05)
[2021-09-20 10:00] LABS: BASO % 0.8 % (0-2.0); EOS % 0.5 % (0-4.5); HEMATOCRIT 38.1 % (35.4-49); LYMPH % 10.2 % (8-40); MCH 28.5 pg (25.7-33.7); MCHC 34.1 g/dl (32.0-35.9); MEAN CELL VOLUME 83.7 fl (80-96); MEAN PLT VOLUME 8.1 fl (7.5-11.1); MONO % 11.1 % (3.8-10.2); NEUT % 77.4 % (42.8-82.8); PLATELET COUNT 369 10^3/uL (134-434); RBC 4.55 M/mm3 (4.00-5.60); RDW 13.9 % (11.9-15.9); WHITE BLOOD COUNT 6.2 K/mm3 (4.0-10.0)
[2021-09-20 10:24] LABS: BLOOD UREA NITROGEN 4.8 mg/dL (7-18); CALCIUM 8.7 mg/dL (8.5-10.1); MAGNESIUM 2.3 mg/dL (1.8-2.4)
[2021-09-20 10:27] LABS: PHOSPHOROUS 2.9 mg/dL (2.5-4.9)
[2021-09-20 10:28] LABS: CREATININE 0.8 mg/dL (0.55-1.3)
[2021-09-20] MEDS: DEXTROSE 5%-NORMAL SALINE 1,000 ML IV SCH (14:46)
[2021-09-21] MEDS ORDERED: DEXTROSE 5%-WATER - 50 ML IVPB ONE ×3 (01:26→17:25)
[2021-09-21] MEDS ORDERED: PIPERACILLIN/TAZOBACTAM 3.375 GM VIAL IVPB ONE ×3 (01:26→17:25)
[2021-09-21] MEDS: PIPERACILLIN/TAZOB 3.375 GM 3.375 GM in DEXTROSE 5%-WATER - 50 ML IVPB SCH ×5 (01:45→17:58)
[2021-09-21] MEDS: DEXTROSE 5%-NORMAL SALINE 1,000 ML IV SCH ×3 (04:45→18:05)
[2021-09-21 09:30] LABS: EOS % 0.5 % (0-4.5); HEMATOCRIT 39.2 % (35.4-49); HEMOGLOBIN 13.5 GM/dL (11.7-16.9); LYMPH % 10.1 % (8-40); MCH 28.9 pg (25.7-33.7); MCHC 34.6 g/dl (32.0-35.9); MEAN CELL VOLUME 83.7 fl (80-96); MEAN PLT VOLUME 8.1 fl (7.5-11.1); MONO % 10.9 % (3.8-10.2); NEUT % 77.5 % (42.8-82.8); PLATELET COUNT 365 10^3/uL (134-434); RBC 4.68 M/mm3 (4.00-5.60); RDW 13.8 % (11.9-15.9); WHITE BLOOD COUNT 6.4 K/mm3 (4.0-10.0)
[2021-09-21 09:51] LABS: CALCIUM 8.8 mg/dL (8.5-10.1)
[2021-09-21 10:01] LABS: CREATININE 0.8 mg/dL (0.55-1.3)
[2021-09-21 10:02] LABS: PHOSPHOROUS 2.9 mg/dL (2.5-4.9)
[2021-09-21 10:32] LABS: BLOOD UREA NITROGEN 4.3 mg/dL (7-18)
[2021-09-21] MEDS: PANTOPRAZOLE 40 MG TABLET PO SCH (23:27)
[2021-09-22] MEDS ORDERED: PIPERACILLIN/TAZOBACTAM 3.375 GM VIAL IVPB ONE ×3 (00:37→17:04)
[2021-09-22] MEDS ORDERED: DEXTROSE 5%-WATER - 50 ML IVPB ONE ×3 (00:37→17:04)
[2021-09-22] MEDS: PIPERACILLIN/TAZOB 3.375 GM 3.375 GM in DEXTROSE 5%-WATER - 50 ML IVPB SCH ×3 (01:51→18:55)
[2021-09-22] MEDS: DEXTROSE 5%-NORMAL SALINE 1,000 ML IV SCH (06:45)
[2021-09-22 08:54] LABS: BASO % 0.7 % (0-2.0); EOS % 0.8 % (0-4.5); HEMATOCRIT 41.8 % (35.4-49); HEMOGLOBIN 14.3 GM/dL (11.7-16.9); LYMPH % 11.4 % (8-40); MCH 28.7 pg (25.7-33.7); MCHC 34.2 g/dl (32.0-35.9); MEAN CELL VOLUME 83.9 fl (80-96); MEAN PLT VOLUME 8.2 fl (7.5-11.1); NEUT % 76.1 % (42.8-82.8); PLATELET COUNT 424 10^3/uL (134-434); RBC 4.99 M/mm3 (4.00-5.60); RDW 13.9 % (11.9-15.9); WHITE BLOOD COUNT 6.1 K/mm3 (4.0-10.0)
[2021-09-22 09:46] LABS: CALCIUM 9.2 mg/dL (8.5-10.1)
[2021-09-22 09:47] LABS: CREATININE 0.8 mg/dL (0.55-1.3); MAGNESIUM 2.1 mg/dL (1.8-2.4); PHOSPHOROUS 3.2 mg/dL (2.5-4.9)
[2021-09-22] MEDS ORDERED: PANTOPRAZOLE 40 MG TABLET PO SCH (10:00)
[2021-09-22] MEDS: PANTOPRAZOLE 40 MG TABLET PO SCH ×2 (11:05→11:06)
[2021-09-22] MEDS: CALCIUM CARBONATE SUSPENSION - 1250 MG/5 ML ML PO SCH (15:06)
[2021-09-23] MEDS ORDERED: PIPERACILLIN/TAZOBACTAM 3.375 GM VIAL IVPB ONE ×3 (01:50→16:34)
[2021-09-23] MEDS ORDERED: DEXTROSE 5%-WATER - 50 ML IVPB ONE ×3 (01:51→16:35)
[2021-09-23] MEDS: PIPERACILLIN/TAZOB 3.375 GM 3.375 GM in DEXTROSE 5%-WATER - 50 ML IVPB SCH ×3 (02:02→17:10)
[2021-09-23 10:49] LABS: BASO % 1.1 % (0-2.0); EOS % 1.4 % (0-4.5); HEMATOCRIT 41.5 % (35.4-49); LYMPH % 15.6 % (8-40); MCH 28.3 pg (25.7-33.7); MCHC 33.7 g/dl (32.0-35.9); MEAN CELL VOLUME 83.8 fl (80-96); MEAN PLT VOLUME 8.3 fl (7.5-11.1); MONO % 12.5 % (3.8-10.2); NEUT % 69.4 % (42.8-82.8); PLATELET COUNT 377 10^3/uL (134-434); RBC 4.95 M/mm3 (4.00-5.60); WHITE BLOOD COUNT 4.7 K/mm3 (4.0-10.0)
[2021-09-23] MEDS: PANTOPRAZOLE 40 MG TABLET PO SCH (11:04)
[2021-09-23] MEDS: CALCIUM CARBONATE SUSPENSION - 1250 MG/5 ML ML PO SCH ×2 (11:04→21:47)
[2021-09-23 11:15] LABS: CALCIUM 9.2 mg/dL (8.5-10.1)
[2021-09-23 11:19] LABS: CREATININE 0.8 mg/dL (0.55-1.3)
[2021-09-23] MEDS: DEXTROSE 5%-NORMAL SALINE 1,000 ML IV SCH (11:25)
[2021-09-23 11:53] LABS: BLOOD UREA NITROGEN 3.3 mg/dL (7-18)
[2021-09-24] MEDS: PIPERACILLIN/TAZOB 3.375 GM 3.375 GM in DEXTROSE 5%-WATER - 50 ML IVPB SCH ×2 (03:00→10:57)
[2021-09-24] MEDS ORDERED: DEXTROSE 5%-WATER - 50 ML IVPB ONE ×2 (05:10→10:55)
[2021-09-24] MEDS ORDERED: PIPERACILLIN/TAZOBACTAM 3.375 GM VIAL IVPB ONE ×2 (05:10→10:54)
[2021-09-24] MEDS: DEXTROSE 5%-NORMAL SALINE 1,000 ML IV SCH (05:20)
[2021-09-24] MEDS: PANTOPRAZOLE 40 MG TABLET PO SCH (10:57)
[2021-09-24 11:21] VITALS: BP 142/72; PULSE 78; TEMP 98.5
[2021-09-24 12:44] LABS: HEMATOCRIT 42.8 % (35.4-49); HEMOGLOBIN 14.3 GM/dL (11.7-16.9); MCH 28.1 pg (25.7-33.7); MCHC 33.4 g/dl (32.0-35.9); MEAN CELL VOLUME 84.3 fl (80-96); MEAN PLT VOLUME 8.4 fl (7.5-11.1); PLATELET COUNT 392 10^3/uL (134-434); RBC 5.07 M/mm3 (4.00-5.60); WHITE BLOOD COUNT 7.7 K/mm3 (4.0-10.0)
[2021-09-24] MEDS: CALCIUM CARBONATE SUSPENSION - 1250 MG/5 ML ML PO SCH (12:50)
[2021-09-24 13:08] LABS: CALCIUM 9.9 mg/dL (8.5-10.1)
[2021-09-24 13:09] LABS: BLOOD UREA NITROGEN 5.3 mg/dL (7-18)
[2021-09-24 13:12] LABS: CREATININE 0.9 mg/dL (0.55-1.3)
== END 2021-09-24 14:31 | disposition home or self-care (01) | DRG 392 ==
LOC: JER 17:19 → JERBED 09-19 00:29 → J5S 09-19 08:53
PROVIDERS: ADMIT Internal Medicine; ATTEND Internal Medicine
DX: K57.32 Diverticulitis of large intestine without perforation or abscess without bleeding (principal); N39.0 Urinary tract infection, site not specified; I10 Essential (primary) hypertension; E78.5 Hyperlipidemia, unspecified; E66.9 Obesity, unspecified; Z68.29 Body mass index [BMI] 29.0-29.9, adult; N40.0 Benign prostatic hyperplasia without lower urinary tract symptoms; K75.81 Nonalcoholic steatohepatitis (NASH)
CPT/HCPCS: 36415; 74177-TC; 80048; 80053; 81003; 82378; 83605; 83735; 84100; 85025; 85027; 85610; 85730; 86140; 86850; 86900; 86901; 87086; 87324; 87449; 93005; 93010; 99285-25; C9803-CS; Q9967; U0003; U0005

== ENCOUNTER 2021-11-24 03:48 | Inpatient (IN) | payer OTHER, BC ==
[2021-11-20 14:56] VITALS: BMI 28.5
[2021-11-24] MEDS ORDERED: ERTAPENEM SODIUM 1 GM VIAL ONE (06:51)
[2021-11-24] MEDS ORDERED: ERTAPENEM SODIUM 1 GM in SODIUM CHLORIDE 50 ML IVPB ONE (07:00)
[2021-11-24] MEDS ORDERED: INDOCYANINE GREEN 25 MG/10 ML VIAL IVPUSH ONE ×4 (07:37→09:18)
[2021-11-24] MEDS ORDERED: PROPOFOL 20 ML ONE (07:52)
[2021-11-24] MEDS ORDERED: ROCURONIUM BROMIDE 50 MG/5 ML SYRINGE ONE ×2 (07:53→11:56)
[2021-11-24] MEDS ORDERED: MIDAZOLAM HCL 2 MG/2 ML SINGLE DOSE VIAL ONE (08:00)
[2021-11-24] MEDS ORDERED: ceFAZolin SODIUM 1 GM VIAL IVPB ONE (08:12)
[2021-11-24] MEDS ORDERED: HEPARIN NA (PORCINE) 5,000 UNITS/ML 1ML VIAL ONE (08:18)
[2021-11-24] MEDS ORDERED: cefOXitin SODIUM 2 GM VIAL (RESTRICTED TO ID) IVPB ONE (08:19)
[2021-11-24] MEDS ORDERED: cefOXitin SODIUM 1 GM VIAL (RESTRICTED TO ID) IVPB ONE (08:41)
[2021-11-24] MEDS ORDERED: BUPIVACAINE HCL/PF 0.25% (2.5MG/ML) 10 ML VIAL ONE (09:02)
[2021-11-24] MEDS ORDERED: BUPIVACAINE HCL/PF 0.25% (2.5MG/ML) 10 ML VIAL IJ ONE (09:25)
[2021-11-24] MEDS ORDERED: ACETAMINOPHEN INJECTION 100 ML IVPB ONE (09:25)
[2021-11-24] MEDS ORDERED: NEOSTIGMINE METHYLSULFATE 0.5 MG/1 ML - 10 ML MDV ONE (13:32)
[2021-11-24] MEDS ORDERED: ONDANSETRON 4 MG/2 ML VIAL IVPUSH PRN ×2 (14:14→14:18)
[2021-11-24] MEDS ORDERED: KETOROLAC TROMETHAMINE 15 MG/ML VIAL IVPUSH SCH (14:15)
[2021-11-24] MEDS ORDERED: oxyCODONE HCL 5 MG TABLET PO PRN ×2 (14:16→14:17)
[2021-11-24] MEDS ORDERED: LACTATED RINGERS SOLUTION 1,000 ML IV SCH (14:30)
[2021-11-24] MEDS ORDERED: morphine SULFATE 4 MG/ML VIAL IVPUSH PRN (15:38)
[2021-11-24] MEDS ORDERED: morphine SULFATE 4 MG/ML VIAL ONE (15:52)
[2021-11-24] MEDS: ACETAMINOPHEN 1000 MG/100 ML BAG IVPB SCH ×2 (16:00→21:58)
[2021-11-24 17:28] VITALS: RESP 18
[2021-11-24] MEDS: oxyCODONE HCL 5 MG TABLET PO PRN (18:03)
[2021-11-24] MEDS: LACTATED RINGERS SOLUTION 1,000 ML/1,000 ML INFUS.BAG IV SCH (18:29)
[2021-11-24] MEDS: KETOROLAC TROMETHAMINE 15 MG/ML VIAL IVPUSH SCH (21:09)
[2021-11-24] MEDS: CEFOXITIN SODIUM 1 GM in DEXTROSE 5%-WATER 100 ML IVPB SCH (21:14)
[2021-11-25] MEDS: oxyCODONE HCL 5 MG TABLET PO PRN (00:29)
[2021-11-25] MEDS: CEFOXITIN SODIUM 1 GM in DEXTROSE 5%-WATER 100 ML IVPB SCH (02:16)
[2021-11-25] MEDS: ACETAMINOPHEN 1000 MG/100 ML BAG IVPB SCH ×3 (03:24→17:01)
[2021-11-25] MEDS: KETOROLAC TROMETHAMINE 15 MG/ML VIAL IVPUSH SCH ×2 (05:38→14:35)
[2021-11-25] MEDS: ENOXAPARIN NA (PORCINE) 40 MG/0.4 ML DISP.SYRIN SQ SCH (10:33)
[2021-11-25 11:28] LABS: BASO % 0.3 % (0-2.0); EOS % 0.4 % (0-4.5); HEMATOCRIT 37.6 % (35.4-49); HEMOGLOBIN 12.6 GM/dL (11.7-16.9); LYMPH % 6.2 % (8-40); MCH 27.9 pg (25.7-33.7); MCHC 33.6 g/dl (32.0-35.9); MEAN PLT VOLUME 8.2 fl (7.5-11.1); MONO % 10.9 % (3.8-10.2); NEUT % 82.2 % (42.8-82.8); PLATELET COUNT 263 10^3/uL (134-434); RBC 4.53 M/mm3 (4.00-5.60); RDW 15.2 % (11.9-15.9); WHITE BLOOD COUNT 8.4 K/mm3 (4.0-10.0)
[2021-11-25 11:54] LABS: BLOOD UREA NITROGEN 6.5 mg/dL (7-18); CALCIUM 8.7 mg/dL (8.5-10.1)
[2021-11-25 11:57] LABS: CREATININE 0.8 mg/dL (0.55-1.3)
[2021-11-25] MEDS: IBUPROFEN 400 MG TABLET (FP) PO SCH ×2 (16:41→21:13)
[2021-11-25] MEDS: ACETAMINOPHEN 500 MG TABLET (FP) PO SCH ×2 (16:42→21:14)
[2021-11-25] MEDS: LACTATED RINGERS SOLUTION 1,000 ML/1,000 ML INFUS.BAG IV SCH (17:00)
[2021-11-25] MEDS ORDERED: FAMOTIDINE 10 MG TABLET PO ONE (20:45)
[2021-11-26] MEDS: IBUPROFEN 400 MG TABLET (FP) PO SCH ×6 (01:19→20:39)
[2021-11-26] MEDS: ACETAMINOPHEN 500 MG TABLET (FP) PO SCH ×6 (01:19→20:39)
[2021-11-26] MEDS: LACTATED RINGERS SOLUTION 1,000 ML/1,000 ML INFUS.BAG IV SCH (06:41)
[2021-11-26] MEDS: ENOXAPARIN NA (PORCINE) 40 MG/0.4 ML DISP.SYRIN SQ SCH (09:39)
[2021-11-26 12:19] LABS: BASO % 0.8 % (0-2.0); EOS % 0.8 % (0-4.5); HEMATOCRIT 36.6 % (35.4-49); HEMOGLOBIN 12.4 GM/dL (11.7-16.9); LYMPH % 6.5 % (8-40); MCHC 33.7 g/dl (32.0-35.9); MEAN PLT VOLUME 8.1 fl (7.5-11.1); MONO % 9.5 % (3.8-10.2); NEUT % 82.4 % (42.8-82.8); PLATELET COUNT 284 10^3/uL (134-434); RBC 4.41 M/mm3 (4.00-5.60); RDW 15.2 % (11.9-15.9); WHITE BLOOD COUNT 7.7 K/mm3 (4.0-10.0)
[2021-11-26 12:40] LABS: CALCIUM 8.9 mg/dL (8.5-10.1)
[2021-11-26 12:41] LABS: BLOOD UREA NITROGEN 4.9 mg/dL (7-18)
[2021-11-26 12:44] LABS: CREATININE 0.7 mg/dL (0.55-1.3)
[2021-11-27] MEDS: ACETAMINOPHEN 500 MG TABLET (FP) PO SCH ×4 (00:49→12:06)
[2021-11-27] MEDS: IBUPROFEN 400 MG TABLET (FP) PO SCH ×4 (00:49→12:06)
[2021-11-27 08:52] VITALS: BP 157/74; PULSE 92; TEMP 98.2
[2021-11-27] MEDS: ENOXAPARIN NA (PORCINE) 40 MG/0.4 ML DISP.SYRIN SQ SCH (09:35)
[2021-11-27 12:19] LABS: CALCIUM 9.2 mg/dL (8.5-10.1)
[2021-11-27 12:21] LABS: BLOOD UREA NITROGEN 8.4 mg/dL (7-18)
[2021-11-27 12:23] LABS: CREATININE 0.8 mg/dL (0.55-1.3)
== END 2021-11-27 15:42 | disposition home or self-care (01) | DRG 331 ==
LOC: J2C 03:48 → J6S 17:19
PROVIDERS: ADMIT Surgery; ATTEND Internal Medicine
PROC: 0DTNFZZ Resection of Sigmoid Colon, Via Natural or Artificial Opening With Percutaneous Endoscopic Assistance (ICD-10-PCS; principal; 2021-11-24 08:00)
DX: K57.32 Diverticulitis of large intestine without perforation or abscess without bleeding (principal); I10 Essential (primary) hypertension; E78.5 Hyperlipidemia, unspecified; K75.81 Nonalcoholic steatohepatitis (NASH); N40.0 Benign prostatic hyperplasia without lower urinary tract symptoms
CPT/HCPCS: 36415; 80048; 85025; 86140; 86850; 86900; 86901; 88305-TC; 88307-TC; 94760; 97116-GP; 97161-GP; J1644

== ENCOUNTER 2022-09-06 23:11 | Inpatient (IN) | payer OTHER, BC ==
[2022-09-06 23:28] VITALS: BMI 27.1
[2022-09-07] MEDS ORDERED: LIDOCAINE 5% TOPICAL PATCH TP ONE (00:22)
[2022-09-07 00:30] LABS: EPI CELLS 17 /uL (0-25.1); HYALINE CASTS 1 /uL (0-3.1); PH,URINE 5.5 (5.0-8.0); URINE APPEARANCE CLEAR; URINE BACTERIA 7 /uL (0-1359); URINE BILIRUBIN NEGATIVE (NEGATIVE); URINE COLOR YELLOW; URINE GLUCOSE (UA) NEGATIVE (NEGATIVE); URINE KETONE 1+ (NEGATIVE); URINE LEUK ESTERASE 1+ (NEGATIVE); URINE NITRITE NEGATIVE (NEGATIVE); URINE PROTEIN 2+ (NEGATIVE); URINE RBC 14 /uL (0-23.9); URINE UROBILINOGEN 0.2 mg/dL (0.2-1.0); URINE WBC 63 /uL (0-25.8)
[2022-09-07] MEDS ORDERED: LIDOCAINE 5% TOPICAL PATCH ONE ×2 (00:36→11:13)
[2022-09-07 01:18] LABS: BASO % 0.4 % (0-2.0); HEMATOCRIT 46.7 % (35.4-49); HEMOGLOBIN 16.2 GM/dL (11.7-16.9); LYMPH % 3.6 % (8-40); MCH 29.7 pg (25.7-33.7); MCHC 34.6 g/dl (32.0-35.9); MEAN CELL VOLUME 85.7 fl (80-96); MEAN PLT VOLUME 8.7 fl (7.5-11.1); MONO % 12.4 % (3.8-10.2); NEUT % 83.6 % (42.8-82.8); PLATELET COUNT 239 10^3/uL (134-434); RBC 5.45 M/mm3 (4.00-5.60); RDW 14.3 % (11.9-15.9); WHITE BLOOD COUNT 17.5 K/mm3 (4.0-10.0)
[2022-09-07 01:25] LABS: POTASSIUM 4.1 mmol/L (3.5-5.1)
[2022-09-07 01:27] LABS: CALCIUM 10.6 mg/dL (8.5-10.1)
[2022-09-07 01:29] LABS: ALBUMIN 3.9 g/dl (3.4-5.0); MAGNESIUM 2.3 mg/dL (1.8-2.4)
[2022-09-07 01:31] LABS: PHOSPHOROUS 2.3 mg/dL (2.5-4.9)
[2022-09-07 01:32] LABS: BILIRUBIN,TOTAL 0.8 mg/dL (0.2-1); CREATININE 1.2 mg/dL (0.55-1.3)
[2022-09-07] MEDS ORDERED: SODIUM CHLORIDE 0.9% 500 ML INFUS.BAG IV ONE (02:04)
[2022-09-07 02:33] LABS: URINE CRYSTALS MANY /hpf
[2022-09-07] MEDS ORDERED: CEFTRIAXONE 1 GM in DEXTROSE 5%-WATER - 100 ML IVPB ONE (02:46)
[2022-09-07] MEDS ORDERED: CEFTRIAXONE 1 GM/50 ML BAG ONE (03:25)
[2022-09-07] MEDS ORDERED: ACETAMINOPHEN 1000 MG/100 ML BAG IVPB ONE (04:13)
[2022-09-07] MEDS ORDERED: SODIUM CHLORIDE 1,000 ML IV SCH (04:15)
[2022-09-07] MEDS ORDERED: ACETAMINOPHEN INJECTION 100 ML IVPB ONE ×2 (05:15→11:17)
[2022-09-07 07:43] LABS: BASO % 0.6 % (0-2.0); EOS % 0.1 % (0-4.5); HEMATOCRIT 43.5 % (35.4-49); HEMOGLOBIN 15.1 GM/dL (11.7-16.9); LYMPH % 9.8 % (8-40); MCH 29.6 pg (25.7-33.7); MCHC 34.8 g/dl (32.0-35.9); MEAN CELL VOLUME 85.2 fl (80-96); MEAN PLT VOLUME 8.5 fl (7.5-11.1); NEUT % 78.5 % (42.8-82.8); PLATELET COUNT 223 10^3/uL (134-434); RBC 5.11 M/mm3 (4.00-5.60); RDW 14.4 % (11.9-15.9); WHITE BLOOD COUNT 9.5 K/mm3 (4.0-10.0)
[2022-09-07 07:48] LABS: POTASSIUM 3.8 mmol/L (3.5-5.1)
[2022-09-07 07:50] LABS: ALBUMIN 3.5 g/dl (3.4-5.0); BLOOD UREA NITROGEN 14.8 mg/dL (7-18); CALCIUM 9.2 mg/dL (8.5-10.1); MAGNESIUM 2.1 mg/dL (1.8-2.4)
[2022-09-07 07:53] LABS: PHOSPHOROUS 2.6 mg/dL (2.5-4.9)
[2022-09-07 07:55] LABS: BILIRUBIN,TOTAL 0.9 mg/dL (0.2-1); TOT PROT 6.2 g/dl (6.4-8.2)
[2022-09-07 09:51] LABS: LACTIC ACID 2.5 mmol/L (0.4-2.0)
[2022-09-07] MEDS ORDERED: LACTATED RINGERS SOLUTION 1000 ML INFUS.BAG IV ONE (09:54)
[2022-09-07] MEDS ORDERED: NAPH,MB-DB/K PH,MBDB POWDER PACKET PO ONE (10:00)
[2022-09-07] MEDS ORDERED: CEFTRIAXONE 1 GM in DEXTROSE 5%-WATER - 50 ML IVPB SCH (10:00)
[2022-09-07] MEDS ORDERED: NAPH,MB-DB/K PH,MBDB POWDER PACKET ONE (11:12)
[2022-09-07] MEDS ORDERED: ENOXAPARIN NA (PORCINE) 40 MG/0.4 ML DISP.SYRIN SQ ONE (11:13)
[2022-09-07] MEDS: LACTATED RINGERS SOLUTION 1,000 ML/1,000 ML INFUS.BAG IV SCH ×2 (11:28→19:43)
[2022-09-07] MEDS: ENOXAPARIN NA (PORCINE) 40 MG/0.4 ML DISP.SYRIN SQ SCH (11:28)
[2022-09-07] MEDS: ACETAMINOPHEN 1000 MG/100 ML BAG IVPB PRN ×2 (11:29→19:42)
[2022-09-07] MEDS ORDERED: LIDOCAINE PATCH REMOVAL MC ONE (13:00)
[2022-09-08] MEDS: LACTATED RINGERS SOLUTION 1,000 ML/1,000 ML INFUS.BAG IV SCH ×2 (05:55→16:05)
[2022-09-08 07:47] LABS: HEMATOCRIT 40.3 % (35.4-49); HEMOGLOBIN 14.1 GM/dL (11.7-16.9); MCH 29.9 pg (25.7-33.7); MCHC 35.1 g/dl (32.0-35.9); MEAN CELL VOLUME 85.3 fl (80-96); MEAN PLT VOLUME 8.7 fl (7.5-11.1); PLATELET COUNT 195 10^3/uL (134-434); RBC 4.72 M/mm3 (4.00-5.60); WHITE BLOOD COUNT 7.8 K/mm3 (4.0-10.0)
[2022-09-08 08:07] LABS: POTASSIUM 3.6 mmol/L (3.5-5.1)
[2022-09-08 08:10] LABS: CALCIUM 9.2 mg/dL (8.5-10.1); MAGNESIUM 1.9 mg/dL (1.8-2.4)
[2022-09-08 08:11] LABS: ALBUMIN 3.1 g/dl (3.4-5.0); BLOOD UREA NITROGEN 12.3 mg/dL (7-18)
[2022-09-08 08:13] LABS: CREATININE 0.8 mg/dL (0.55-1.3)
[2022-09-08 08:15] LABS: PHOSPHOROUS 2.7 mg/dL (2.5-4.9); TOT PROT 5.8 g/dl (6.4-8.2)
[2022-09-08] MEDS: ENOXAPARIN NA (PORCINE) 40 MG/0.4 ML DISP.SYRIN SQ SCH (09:41)
[2022-09-08] MEDS: MAGNESIUM SULF 50% (8.12 MEQ/2 ML-1 GM VIAL) IVPB ONE ×2 (17:03→17:18)
[2022-09-08] MEDS: POTASSIUM CHLORIDE TABS 20 MEQ TABLET.ER (FP) PO ONE ×2 (17:03→17:18)
[2022-09-08] MEDS: NAPH,MB-DB/K PH,MBDB POWDER PACKET PO ONE ×2 (17:04→17:18)
[2022-09-08] MEDS ORDERED: POTASSIUM CHLORIDE TABS 20 MEQ TABLET.ER (FP) PO SCH (18:30)
[2022-09-09 05:32] VITALS: RESP 18
[2022-09-09] MEDS: LACTATED RINGERS SOLUTION 1,000 ML/1,000 ML INFUS.BAG IV SCH ×2 (06:22→10:49)
[2022-09-09 06:53] LABS: HEMATOCRIT 40.9 % (35.4-49); HEMOGLOBIN 14.4 GM/dL (11.7-16.9); MCHC 35.2 g/dl (32.0-35.9); MEAN CELL VOLUME 85.4 fl (80-96); MEAN PLT VOLUME 8.5 fl (7.5-11.1); PLATELET COUNT 198 10^3/uL (134-434); RBC 4.79 M/mm3 (4.00-5.60); WHITE BLOOD COUNT 6.8 K/mm3 (4.0-10.0)
[2022-09-09 07:13] LABS: POTASSIUM 3.6 mmol/L (3.5-5.1)
[2022-09-09 07:18] LABS: CALCIUM 8.7 mg/dL (8.5-10.1)
[2022-09-09 07:20] LABS: BLOOD UREA NITROGEN 9.7 mg/dL (7-18); MAGNESIUM 1.9 mg/dL (1.8-2.4)
[2022-09-09 07:21] LABS: PHOSPHOROUS 2.9 mg/dL (2.5-4.9)
[2022-09-09 07:22] LABS: CREATININE 0.8 mg/dL (0.55-1.3)
[2022-09-09 07:23] LABS: BILIRUBIN,TOTAL 0.9 mg/dL (0.2-1); TOT PROT 5.7 g/dl (6.4-8.2)
[2022-09-09 09:14] VITALS: TEMP 98.6
[2022-09-09] MEDS: ENOXAPARIN NA (PORCINE) 40 MG/0.4 ML DISP.SYRIN SQ SCH (10:49)
[2022-09-09 15:00] VITALS: BP 130/87; PULSE 98
== END 2022-09-09 18:03 | disposition home health service (06) | DRG 558 ==
LOC: JER 23:11 → JERBED 09-07 02:29 → J4S 09-07 13:26 → OBSVTOIN 09-08 14:12
PROVIDERS: ADMIT Internal Medicine; ATTEND Internal Medicine
DX: M62.82 Rhabdomyolysis (principal); E87.20 Acidosis, unspecified; N17.9 Acute kidney failure, unspecified; R94.31 Abnormal electrocardiogram [ECG] [EKG]; I10 Essential (primary) hypertension; E78.5 Hyperlipidemia, unspecified; K57.90 Diverticulosis of intestine, part unspecified, without perforation or abscess without bleeding; K80.20 Calculus of gallbladder without cholecystitis without obstruction; K21.9 Gastro-esophageal reflux disease without esophagitis; D72.829 Elevated white blood cell count, unspecified; N40.0 Benign prostatic hyperplasia without lower urinary tract symptoms; N28.1 Cyst of kidney, acquired; M47.816 Spondylosis without myelopathy or radiculopathy, lumbar region; H35.30 Unspecified macular degeneration; K76.0 Fatty (change of) liver, not elsewhere classified; R80.9 Proteinuria, unspecified; E83.52 Hypercalcemia; W18.30XA Fall on same level, unspecified, initial encounter; Y92.091 Bathroom in other non-institutional residence as the place of occurrence of the external cause; Z96.651 Presence of right artificial knee joint
CPT/HCPCS: 0241U-QW; 36415; 70450-TC; 71045-TC-FY; 71101-TC-RT-FY; 72125-TC; 72131-TC; 73521-TC-FY; 74177-TC; 80053; 80061; 81003; 82550; 82553; 83036; 83605; 83735; 84100; 84439; 84443; 84484; 85025; 85027; 87086; 93005; 93010; 93306-TC; 93880-TC; 97116-GP; 97161-GP; 99285-25; G0378; Q9967

== ENCOUNTER 2022-11-20 17:05 | Inpatient (IN) | payer OTHER, BC ==
[2022-11-20] MEDS ORDERED: ACETAMINOPHEN 500 MG TABLET (FP) PO ONE (17:53)
[2022-11-20] MEDS ORDERED: LIDOCAINE 5% TOPICAL PATCH TP ONE (17:54)
[2022-11-20] MEDS ORDERED: LIDOCAINE 5% TOPICAL PATCH ONE (18:01)
[2022-11-20] MEDS ORDERED: ACETAMINOPHEN 500 MG TABLET (FP) ONE (18:03)
[2022-11-20 23:13] LABS: BASO % 0.6 % (0-2.0); EOS % 0.4 % (0-4.5); HEMATOCRIT 45.3 % (35.4-49); HEMOGLOBIN 15.6 GM/dL (11.7-16.9); MCH 29.6 pg (25.7-33.7); MCHC 34.5 g/dl (32.0-35.9); MEAN PLT VOLUME 7.8 fl (7.5-11.1); MONO % 9.6 % (3.8-10.2); NEUT % 82.4 % (42.8-82.8); PH,URINE 8.5 (5.0-8.0); PLATELET COUNT 236 10^3/uL (134-434); RBC 5.27 M/mm3 (4.00-5.60); RDW 14.3 % (11.9-15.9); URINE APPEARANCE CLEAR; URINE BILIRUBIN NEGATIVE (NEGATIVE); URINE COLOR YELLOW; URINE GLUCOSE (UA) NEGATIVE (NEGATIVE); URINE KETONE NEGATIVE (NEGATIVE); URINE LEUK ESTERASE NEGATIVE (NEGATIVE); URINE NITRITE NEGATIVE (NEGATIVE); URINE PROTEIN NEGATIVE (NEGATIVE); URINE UROBILINOGEN 0.2 mg/dL (0.2-1.0); WHITE BLOOD COUNT 11.2 K/mm3 (4.0-10.0)
[2022-11-20 23:53] LABS: POTASSIUM 4.1 mmol/L (3.5-5.1)
[2022-11-20 23:55] LABS: BLOOD UREA NITROGEN 17.7 mg/dL (7-18); CALCIUM 9.4 mg/dL (8.5-10.1)
[2022-11-20 23:56] LABS: ALBUMIN 3.8 g/dl (3.4-5.0)
[2022-11-20 23:59] LABS: BILIRUBIN,TOTAL 0.7 mg/dL (0.2-1)
[2022-11-21 00:01] LABS: TOT PROT 6.8 g/dl (6.4-8.2)
[2022-11-21] MEDS ORDERED: traMADol HCL 50 MG TABLET PO PRN (01:16)
[2022-11-21 03:00] VITALS: BMI 30.9
[2022-11-21] MEDS ORDERED: LIDOCAINE PATCH REMOVAL MC SCH (06:00)
[2022-11-21] MEDS: ACETAMINOPHEN 1000 MG/100 ML BAG IVPB SCH ×3 (06:31→21:38)
[2022-11-21] MEDS: LIDOCAINE 5% TOPICAL PATCH TP SCH (09:50)
[2022-11-21] MEDS: CHOLECALCIFEROL (VIT D3) 1,000 UNIT (25 MCG) TABLET PO SCH (09:50)
[2022-11-21] MEDS ORDERED: VITAMIN E PO SCH (10:00)
[2022-11-21] MEDS ORDERED: METHYLCELLULOSE 500 MG PO SCH (10:00)
[2022-11-21 10:07] LABS: HEMATOCRIT 43.5 % (35.4-49); HEMOGLOBIN 15.3 GM/dL (11.7-16.9); MCH 30.4 pg (25.7-33.7); MCHC 35.2 g/dl (32.0-35.9); MEAN CELL VOLUME 86.4 fl (80-96); MEAN PLT VOLUME 8.3 fl (7.5-11.1); PLATELET COUNT 207 10^3/uL (134-434); RBC 5.04 M/mm3 (4.00-5.60); RDW 14.3 % (11.9-15.9); WHITE BLOOD COUNT 7.8 K/mm3 (4.0-10.0)
[2022-11-21 10:22] LABS: POTASSIUM 4.3 mmol/L (3.5-5.1)
[2022-11-21 10:35] LABS: BLOOD UREA NITROGEN 12.1 mg/dL (7-18); CALCIUM 9.5 mg/dL (8.5-10.1)
[2022-11-21 10:36] LABS: ALBUMIN 3.6 g/dl (3.4-5.0)
[2022-11-21 10:39] LABS: BILIRUBIN,TOTAL 0.8 mg/dL (0.2-1); TOT PROT 6.2 g/dl (6.4-8.2)
[2022-11-21] MEDS: ROSUVASTATIN CA 5 MG TABLET PO SCH (21:38)
[2022-11-21] MEDS: LIDOCAINE PATCH REMOVAL MC SCH (21:41)
[2022-11-22] MEDS: ACETAMINOPHEN 1000 MG/100 ML BAG IVPB SCH ×3 (05:50→21:57)
[2022-11-22] MEDS: LIDOCAINE 5% TOPICAL PATCH TP SCH (09:18)
[2022-11-22] MEDS: CHOLECALCIFEROL (VIT D3) 1,000 UNIT (25 MCG) TABLET PO SCH (09:18)
[2022-11-22 10:20] LABS: BASO % 0.6 % (0-2.0); EOS % 1.4 % (0-4.5); HEMATOCRIT 44.6 % (35.4-49); HEMOGLOBIN 15.1 GM/dL (11.7-16.9); LYMPH % 7.9 % (8-40); MCH 29.9 pg (25.7-33.7); MCHC 33.9 g/dl (32.0-35.9); MEAN CELL VOLUME 88.2 fl (80-96); MEAN PLT VOLUME 8.6 fl (7.5-11.1); MONO % 10.7 % (3.8-10.2); NEUT % 79.4 % (42.8-82.8); PLATELET COUNT 214 10^3/uL (134-434); RBC 5.06 M/mm3 (4.00-5.60); RDW 14.2 % (11.9-15.9); WHITE BLOOD COUNT 7.4 K/mm3 (4.0-10.0)
[2022-11-22 10:33] LABS: POTASSIUM 3.8 mmol/L (3.5-5.1)
[2022-11-22 10:35] LABS: CALCIUM 9.3 mg/dL (8.5-10.1)
[2022-11-22 10:40] LABS: CREATININE 0.9 mg/dL (0.55-1.3)
[2022-11-22] MEDS: ROSUVASTATIN CA 5 MG TABLET PO SCH (21:58)
[2022-11-22] MEDS: LIDOCAINE PATCH REMOVAL MC SCH (22:01)
[2022-11-23] MEDS: ACETAMINOPHEN 1000 MG/100 ML BAG IVPB SCH ×2 (05:56→13:51)
[2022-11-23 09:46] LABS: BASO % 0.7 % (0-2.0); EOS % 0.9 % (0-4.5); HEMATOCRIT 45.9 % (35.4-49); LYMPH % 9.8 % (8-40); MCH 30.1 pg (25.7-33.7); MCHC 34.8 g/dl (32.0-35.9); MEAN CELL VOLUME 86.3 fl (80-96); MEAN PLT VOLUME 8.3 fl (7.5-11.1); MONO % 7.1 % (3.8-10.2); NEUT % 81.5 % (42.8-82.8); PLATELET COUNT 215 10^3/uL (134-434); RBC 5.32 M/mm3 (4.00-5.60); WHITE BLOOD COUNT 7.3 K/mm3 (4.0-10.0)
[2022-11-23] MEDS ORDERED: ENOXAPARIN NA (PORCINE) 40 MG/0.4 ML DISP.SYRIN SQ SCH (10:00)
[2022-11-23 10:08] LABS: POTASSIUM 3.7 mmol/L (3.5-5.1)
[2022-11-23 10:09] LABS: CALCIUM 9.2 mg/dL (8.5-10.1)
[2022-11-23 10:10] LABS: BLOOD UREA NITROGEN 13.5 mg/dL (7-18)
[2022-11-23 10:14] LABS: CREATININE 0.9 mg/dL (0.55-1.3)
[2022-11-23] MEDS: CHOLECALCIFEROL (VIT D3) 1,000 UNIT (25 MCG) TABLET PO SCH (10:23)
[2022-11-23] MEDS: LIDOCAINE 5% TOPICAL PATCH TP SCH (10:24)
[2022-11-23] MEDS ORDERED: GABAPENTIN 100 MG CAPSULE PO SCH (14:00)
[2022-11-23 14:31] VITALS: RESP 16; TEMP 98.2
[2022-11-23] MEDS ORDERED: ACETAMINOPHEN 325 MG TABLET (FP) PO PRN (15:32)
[2022-11-23] MEDS ORDERED: amLODIPine BESYLATE 5 MG TABLET (FP) PO ONE (18:15)
[2022-11-23 18:20] VITALS: BP 148/90; PULSE 110
== END 2022-11-23 18:30 | DRG 965 ==
LOC: JER 17:05 → JERBED 22:11 → J6S 11-21 01:37
PROVIDERS: ADMIT Internal Medicine; ATTEND Internal Medicine
DX: S32.592A Other specified fracture of left pubis, initial encounter for closed fracture (principal); S37.22XA Contusion of bladder, initial encounter; S32.591A Other specified fracture of right pubis, initial encounter for closed fracture; E78.5 Hyperlipidemia, unspecified; I10 Essential (primary) hypertension; N40.0 Benign prostatic hyperplasia without lower urinary tract symptoms; W19.XXXA Unspecified fall, initial encounter; Y93.9 Activity, unspecified; Y92.89 Other specified places as the place of occurrence of the external cause; Y99.9 Unspecified external cause status
CPT/HCPCS: 36415; 71045-TC-FY; 72131-TC; 72170-TC-FY; 72192-TC; 73502-TC-LT-FY; 73552-TC-LT-FY; 76775-TC; 80048; 80053; 81003; 85025; 85027; 93005; 93010; 93971-TC; 97116-GP; 99285-25

== ENCOUNTER 2023-05-11 10:06 | Emergency (ER) | payer OTHER, BC ==
[2023-05-11 10:20] VITALS: TEMP 97.9; BMI 31.5
[2023-05-11 14:24] VITALS: BP 132/70; PULSE 80; RESP 18
== END 2023-05-11 15:42 | disposition home or self-care (01) ==
LOC: JER 10:06
DX: S80.02XA Contusion of left knee, initial encounter (principal); M19.011 Primary osteoarthritis, right shoulder; M25.562 Pain in left knee; M25.511 Pain in right shoulder; W18.30XA Fall on same level, unspecified, initial encounter; Y93.89 Activity, other specified
CPT/HCPCS: 72170-TC-FY; 73030-TC-RT-FY; 73564-TC-LT-FY; 73700-TC-RT; 99284-25

== ENCOUNTER 2023-12-06 05:29 | Inpatient (IN) | payer OTHER, BC ==
[2023-12-06] MEDS ORDERED: ONDANSETRON 4 MG/2 ML VIAL ONE (06:24)
[2023-12-06] MEDS: ONDANSETRON 4 MG/2 ML VIAL IVPUSH ONE (06:25)
[2023-12-06] MEDS: MECLIZINE HCL 25 MG TABLET (FP) PO ONE (06:35)
[2023-12-06] MEDS: SODIUM CHLORIDE 1,000 ML IV SCH (06:35)
[2023-12-06] MEDS: SODIUM CHLORIDE 0.9% 500 ML INFUS.BAG IV ONE (06:35)
[2023-12-06 06:45] LABS: CALCIUM 8.7 mg/dL (8.5-10.1)
[2023-12-06 06:46] LABS: ALBUMIN 3.4 g/dl (3.4-5.0)
[2023-12-06 06:47] LABS: BLOOD UREA NITROGEN 21.6 mg/dL (7-18)
[2023-12-06 06:48] LABS: INR 1.05 (0.83-1.09); PROTHROMBIN TIME (PATIENT) 11.9 SEC (9.7-13.0)
[2023-12-06 06:50] LABS: ACTIVATED PTT 26.9 SECONDS (25.2-36.5); CREATININE 1.1 mg/dL (0.55-1.3)
[2023-12-06 06:51] LABS: BILIRUBIN,TOTAL 0.6 mg/dL (0.2-1); TOT PROT 5.9 g/dl (6.4-8.2)
[2023-12-06 07:30] LABS: BASO % 0.9 % (0-2.0); HEMATOCRIT 40.1 % (35.4-49); HEMOGLOBIN 13.6 GM/dL (11.7-16.9); LYMPH % 19.9 % (8-40); MCHC 33.9 g/dl (32.0-35.9); MEAN CELL VOLUME 88.6 fl (80-96); MEAN PLT VOLUME 8.9 fl (7.5-11.1); MONO % 8.9 % (3.8-10.2); NEUT % 68.3 % (42.8-82.8); PLATELET COUNT 212 10^3/uL (134-434); RBC 4.53 M/mm3 (4.00-5.60); RDW 14.4 % (11.9-15.9); WHITE BLOOD COUNT 6.2 K/mm3 (4.0-10.0)
[2023-12-06 09:00] LABS: EPI CELLS 6 /uL (0-25.1); HYALINE CASTS 0 /uL (0-3.1); URINE APPEARANCE CLEAR; URINE BACTERIA 11 /uL (0-1359); URINE BILIRUBIN NEGATIVE (NEGATIVE); URINE COLOR YELLOW; URINE GLUCOSE (UA) NEGATIVE (NEGATIVE); URINE KETONE NEGATIVE (NEGATIVE); URINE LEUK ESTERASE 1+ (NEGATIVE); URINE NITRITE NEGATIVE (NEGATIVE); URINE PROTEIN NEGATIVE (NEGATIVE); URINE RBC 16 /uL (0-23.9); URINE UROBILINOGEN 0.2 mg/dL (0.2-1.0); URINE WBC 94 /uL (0-25.8)
[2023-12-06] MEDS ORDERED: TRIMETHOBENZAMIDE HCL 200MG/2ML INJ IM ONE (10:29)
[2023-12-06] MEDS: metoPROLOL SUCCINATE 25 MG TAB.SR.24H (FP) PO SCH (10:45)
[2023-12-06] MEDS: TRIMETHOBENZAMIDE HCL 200MG/2ML INJ IM ONE (10:45)
[2023-12-06] MEDS: EZETIMIBE 10 MG TABLET (FP) PO SCH (10:45)
[2023-12-06] MEDS: ENOXAPARIN NA (PORCINE) 40 MG/0.4 ML DISP.SYRIN SQ SCH (10:45)
[2023-12-06] MEDS ORDERED: ASPIRIN COATED 81 MG TABLET.EC ONE (13:20)
[2023-12-06] MEDS: MECLIZINE HCL 25 MG TABLET (FP) PO SCH (13:22)
[2023-12-06] MEDS: ASPIRIN COATED 81 MG TABLET.EC PO SCH (13:22)
[2023-12-07] MEDS: LIDOCAINE 5% TOPICAL PATCH TP ONE (00:48)
[2023-12-07 03:47] VITALS: BMI 33.7
[2023-12-07] MEDS: KETOROLAC TROMETHAMINE 15 MG/ML VIAL IVPUSH ONE (06:05)
[2023-12-07 08:19] LABS: HEMATOCRIT 40.4 % (35.4-49); MCH 30.4 pg (25.7-33.7); MCHC 34.6 g/dl (32.0-35.9); MEAN PLT VOLUME 8.7 fl (7.5-11.1); PLATELET COUNT 227 10^3/uL (134-434); RDW 14.5 % (11.9-15.9); WHITE BLOOD COUNT 6.9 K/mm3 (4.0-10.0)
[2023-12-07 08:38] LABS: POTASSIUM 4.2 mmol/L (3.5-5.1)
[2023-12-07 08:42] LABS: ALBUMIN 3.6 g/dl (3.4-5.0); CALCIUM 9.3 mg/dL (8.5-10.1)
[2023-12-07 08:46] LABS: CREATININE 1.1 mg/dL (0.55-1.3)
[2023-12-07 08:47] LABS: BILIRUBIN,TOTAL 0.7 mg/dL (0.2-1); TOT PROT 6.5 g/dl (6.4-8.2)
[2023-12-07] MEDS: LIDOCAINE 5% TOPICAL PATCH TP SCH (20:28)
[2023-12-07] MEDS: ACETAMINOPHEN 325 MG TABLET (FP) PO SCH (20:48)
[2023-12-07] MEDS ORDERED: LIDOCAINE PATCH REMOVAL MC SCH (22:00)
[2023-12-08 06:55] LABS: HEMATOCRIT 42.8 % (35.4-49); HEMOGLOBIN 14.7 GM/dL (11.7-16.9); MCHC 34.3 g/dl (32.0-35.9); MEAN CELL VOLUME 87.7 fl (80-96); MEAN PLT VOLUME 8.2 fl (7.5-11.1); PLATELET COUNT 240 10^3/uL (134-434); RBC 4.89 M/mm3 (4.00-5.60); RDW 14.5 % (11.9-15.9); WHITE BLOOD COUNT 7.9 K/mm3 (4.0-10.0)
[2023-12-08 07:10] LABS: POTASSIUM 4.1 mmol/L (3.5-5.1)
[2023-12-08 07:15] LABS: ALBUMIN 3.4 g/dl (3.4-5.0); BLOOD UREA NITROGEN 21.2 mg/dL (7-18); CALCIUM 9.4 mg/dL (8.5-10.1); MAGNESIUM 2.1 mg/dL (1.8-2.4)
[2023-12-08 07:18] LABS: CREATININE 1.2 mg/dL (0.55-1.3); PHOSPHOROUS 3.4 mg/dL (2.5-4.9)
[2023-12-08 07:20] LABS: BILIRUBIN,TOTAL 0.8 mg/dL (0.2-1); TOT PROT 6.2 g/dl (6.4-8.2)
[2023-12-08] MEDS: LIDOCAINE PATCH REMOVAL MC SCH (10:25)
[2023-12-08] MEDS: traMADol HCL 50 MG TABLET PO PRN (17:50)
[2023-12-09 08:27] LABS: HEMATOCRIT 43.5 % (35.4-49); HEMOGLOBIN 15.1 GM/dL (11.7-16.9); MCH 30.2 pg (25.7-33.7); MCHC 34.7 g/dl (32.0-35.9); MEAN PLT VOLUME 8.2 fl (7.5-11.1); PLATELET COUNT 244 10^3/uL (134-434); RDW 14.8 % (11.9-15.9); WHITE BLOOD COUNT 8.7 K/mm3 (4.0-10.0)
[2023-12-09 08:45] LABS: POTASSIUM 4.1 mmol/L (3.5-5.1)
[2023-12-09 08:47] LABS: CALCIUM 9.5 mg/dL (8.5-10.1)
[2023-12-09 08:48] LABS: ALBUMIN 3.2 g/dl (3.4-5.0); BLOOD UREA NITROGEN 25.6 mg/dL (7-18)
[2023-12-09 08:51] LABS: CREATININE 1.4 mg/dL (0.55-1.3)
[2023-12-09 08:52] LABS: BILIRUBIN,TOTAL 0.7 mg/dL (0.2-1); TOT PROT 5.9 g/dl (6.4-8.2)
[2023-12-09] MEDS: ONDANSETRON 4 MG/2 ML VIAL IVPUSH PRN (19:31)
[2023-12-10 06:51] LABS: HEMATOCRIT 41.8 % (35.4-49); HEMOGLOBIN 14.2 GM/dL (11.7-16.9); MEAN CELL VOLUME 88.1 fl (80-96); MEAN PLT VOLUME 8.2 fl (7.5-11.1); PLATELET COUNT 215 10^3/uL (134-434); RBC 4.75 M/mm3 (4.00-5.60); RDW 14.3 % (11.9-15.9); WHITE BLOOD COUNT 6.7 K/mm3 (4.0-10.0)
[2023-12-10 07:12] LABS: POTASSIUM 4.1 mmol/L (3.5-5.1)
[2023-12-10 07:16] LABS: ALBUMIN 2.9 g/dl (3.4-5.0); BLOOD UREA NITROGEN 24.5 mg/dL (7-18); CALCIUM 9.1 mg/dL (8.5-10.1); MAGNESIUM 2.2 mg/dL (1.8-2.4)
[2023-12-10 07:19] LABS: CREATININE 1.3 mg/dL (0.55-1.3)
[2023-12-10 07:20] LABS: BILIRUBIN,TOTAL 0.9 mg/dL (0.2-1); PHOSPHOROUS 3.1 mg/dL (2.5-4.9)
[2023-12-10 07:21] LABS: TOT PROT 5.6 g/dl (6.4-8.2)
[2023-12-11] MEDS: MELATONIN 5 MG TABLETS PO ONE ×3 (00:10→23:35)
[2023-12-11 07:49] LABS: HEMATOCRIT 40.8 % (35.4-49); HEMOGLOBIN 13.8 GM/dL (11.7-16.9); MCHC 33.9 g/dl (32.0-35.9); MEAN CELL VOLUME 88.4 fl (80-96); MEAN PLT VOLUME 8.6 fl (7.5-11.1); PLATELET COUNT 218 10^3/uL (134-434); RBC 4.62 M/mm3 (4.00-5.60); RDW 14.6 % (11.9-15.9); WHITE BLOOD COUNT 6.1 K/mm3 (4.0-10.0)
[2023-12-11 08:08] LABS: POTASSIUM 4.2 mmol/L (3.5-5.1)
[2023-12-11 08:15] LABS: CALCIUM 9.2 mg/dL (8.5-10.1)
[2023-12-11 08:16] LABS: BLOOD UREA NITROGEN 25.1 mg/dL (7-18); MAGNESIUM 2.2 mg/dL (1.8-2.4)
[2023-12-11 08:18] LABS: BILIRUBIN,TOTAL 0.8 mg/dL (0.2-1); TOT PROT 5.6 g/dl (6.4-8.2)
[2023-12-11 08:19] LABS: CREATININE 1.2 mg/dL (0.55-1.3); PHOSPHOROUS 2.9 mg/dL (2.5-4.9)
[2023-12-12] MEDS: MELATONIN 5 MG TABLETS PO PRN (21:24)
[2023-12-12] MEDS: LUTEIN 20 MG PO SCH (21:25)
[2023-12-14 13:00] VITALS: RESP 20; TEMP 98.2
[2023-12-14 15:06] VITALS: BP 141/70; PULSE 85
== END 2023-12-14 16:18 | DRG 149 ==
LOC: JER 05:29 → JERBED 08:29 → J4S 12-07 00:09 → OBSVTOIN 12-07 15:34
PROVIDERS: ADMIT Internal Medicine; ATTEND Internal Medicine
DX: H81.392 Other peripheral vertigo, left ear (principal); G45.0 Vertebro-basilar artery syndrome; N40.0 Benign prostatic hyperplasia without lower urinary tract symptoms; E78.5 Hyperlipidemia, unspecified; K21.9 Gastro-esophageal reflux disease without esophagitis; N28.1 Cyst of kidney, acquired; M47.816 Spondylosis without myelopathy or radiculopathy, lumbar region; H35.30 Unspecified macular degeneration; K75.81 Nonalcoholic steatohepatitis (NASH); I16.0 Hypertensive urgency; M17.0 Bilateral primary osteoarthritis of knee; H93.12 Tinnitus, left ear; H91.92 Unspecified hearing loss, left ear; Z96.651 Presence of right artificial knee joint
CPT/HCPCS: 36415; 70450-TC; 70496-TC; 70498-TC; 70551-TC; 73560-TC-LT-FY; 73560-TC-RT-FY; 80053; 80061; 81003; 82550; 82962; 83036; 83735; 84100; 84484; 85025; 85027; 85610; 85730; 86850; 86900; 86901; 87635; 93005; 93010; 93306-TC; 93880-TC; 97116-GP; 97161-GP; 99285-25; G0378; Q9967

== ENCOUNTER 2024-12-14 14:42 | Inpatient (IN) | payer OTHER, BC ==
[2024-12-14 16:03] VITALS: BMI 30.1
[2024-12-14 16:43] LABS: ABSOLUTE IMMATURE GRANULOCYTES 0.03 x10^3/uL (0.0-0.031); BASOPHILS # 0.06 x10^3/uL (0.01-0.08); EOSINOPHIL % 0.6 % (0.8-7.0); EOSINOPHILS # 0.06 x10^3/uL (0.04-0.54); MCHC 32.8 g/dl (32.3-36.5); MEAN CELL VOLUME 90.1 fl (79.0-92.2); MEAN PLT VOLUME 10.2 fl (9.4-12.4); MONOCYTE # 0.87 x10^3/uL (0.30-0.82); MONOCYTE % 9.4 % (5.3-12.2); RDW 13.2 % (12.2-16.6)
[2024-12-14 16:46] LABS: EPI CELLS 3 /uL (0-25.1); HYALINE CASTS 0 /uL (0-3.1); URINE APPEARANCE CLEAR; URINE BACTERIA 7 /uL (0-1359); URINE BILIRUBIN NEGATIVE (NEGATIVE); URINE COLOR YELLOW; URINE GLUCOSE (UA) NEGATIVE (NEGATIVE); URINE KETONE NEGATIVE (NEGATIVE); URINE LEUK ESTERASE 1+ (NEGATIVE); URINE NITRITE NEGATIVE (NEGATIVE); URINE PROTEIN NEGATIVE (NEGATIVE); URINE RBC 6 /uL (0-23.9); URINE UROBILINOGEN 0.2 mg/dL (0.2-1.0); URINE WBC 16 /uL (0-25.8)
[2024-12-14 16:50] LABS: GLUCOSE,RANDOM 93.0 mg/dL (74-106); INR 1.11 (0.83-1.09); PROTHROMBIN TIME (PATIENT) 12.2 SEC (9.7-13.0); TOT PROT 6.9 g/dl (6.4-8.2)
[2024-12-14 16:51] LABS: CO2 26.0 mmol/L (21-32)
[2024-12-14 16:52] LABS: ALK PHOS 76.0 U/L (40-150)
[2024-12-14 16:53] LABS: ACTIVATED PTT 29.6 SECONDS (25.2-36.5)
[2024-12-14 16:55] LABS: SGOT/AST 22.0 U/L (5-34); SGPT/ALT 26.0 U/L (0-55)
[2024-12-14 16:56] LABS: CREATININE 0.94 mg/dL (0.55-1.3); LDL CHOLESTEROL (ONLY SJRH) 126.0 mg/dL (5-100)
[2024-12-14] MEDS ORDERED: CEFTRIAXONE 1 GM/50 ML BAG ONE (20:06)
[2024-12-14] MEDS: CEFTRIAXONE 1 GM in DEXTROSE 5%-WATER - 100 ML IVPB ONE (20:10)
[2024-12-14] MEDS ORDERED: ATORVASTATIN CA 80 MG TABLET (FP) PO SCH (22:00)
[2024-12-14] MEDS: ASPIRIN 81 MG CHEWABLE TABLETS PO SCH (22:30)
[2024-12-15] MEDS: MELATONIN 5 MG TABLETS PO SCH ×2 (00:29→21:33)
[2024-12-15] MEDS: MINERAL OIL ENEMA 133 ML ENEMA RC ONE ×4 (04:54→13:51)
[2024-12-15] MEDS: LEVOTHYROXINE NA 25 MCG TABLET (FP) PO SCH (06:00)
[2024-12-15 09:56] LABS: MCHC 32.9 g/dl (32.3-36.5); MEAN CELL VOLUME 89.2 fl (79.0-92.2); MEAN PLT VOLUME 10.5 fl (9.4-12.4); RDW 13.3 % (12.2-16.6)
[2024-12-15] MEDS ORDERED: POLYETHYLENE GLYCOL (HEALTHYLAX) 3350 17 GM PACKET PO SCH (10:00)
[2024-12-15] MEDS ORDERED: CEFTRIAXONE 1 GM in DEXTROSE 5%-WATER - 50 ML IVPB SCH (10:00)
[2024-12-15 10:45] LABS: GLUCOSE,RANDOM 89.0 mg/dL (74-106); TOT PROT 6.3 g/dl (6.4-8.2)
[2024-12-15 10:46] LABS: CO2 27.0 mmol/L (21-32)
[2024-12-15 10:48] LABS: ALK PHOS 72.0 U/L (40-150)
[2024-12-15 10:50] LABS: SGOT/AST 18.0 U/L (5-34); SGPT/ALT 18.0 U/L (0-55)
[2024-12-15 10:51] LABS: CREATININE 0.77 mg/dL (0.55-1.3)
[2024-12-15] MEDS: EZETIMIBE 10 MG TABLET (FP) PO SCH (11:03)
[2024-12-15] MEDS: FUROSEMIDE 20 MG TABLET (FP) PO SCH (11:03)
[2024-12-15] MEDS: PATIENT'S OWN MEDICATION (NON-FORMULARY) (Meloxicam [Meloxicam] 15 MG Tablet) PO SCH (13:52)
[2024-12-15] MEDS: BISACODYL 10 MG SUPP.RECT PR ONE (14:30)
[2024-12-15] MEDS: HEPARIN NA (PORCINE) 5,000 UNITS/ML 1ML VIAL SQ SCH (21:33)
[2024-12-15] MEDS: ATORVASTATIN CA 80 MG TABLET (FP) PO SCH (21:33)
[2024-12-15] MEDS ORDERED: MELATONIN 5 MG TABLETS PO SCH (22:00)
[2024-12-15] MEDS ORDERED: ATORVASTATIN CA 80 MG TABLET (FP) PO SCH (22:00)
[2024-12-16] MEDS: LEVOTHYROXINE NA 25 MCG TABLET (FP) PO SCH (06:15)
[2024-12-16] MEDS: ASPIRIN 81 MG CHEWABLE TABLETS PO SCH (10:06)
[2024-12-16] MEDS: EZETIMIBE 10 MG TABLET (FP) PO SCH (10:07)
[2024-12-16] MEDS: FUROSEMIDE 20 MG TABLET (FP) PO SCH (12:12)
[2024-12-16] MEDS: LIDOCAINE 5% TOPICAL PATCH TP SCH (21:54)
[2024-12-16] MEDS: KETOROLAC TROMETHAMINE 15 MG/ML VIAL IVPUSH ONE (21:55)
[2024-12-17] MEDS: LIDOCAINE PATCH REMOVAL MC SCH (10:24)
[2024-12-18 07:07] LABS: BASOPHILS # 0.06 x10^3/uL (0.01-0.08); EOSINOPHIL % 2.5 % (0.8-7.0); EOSINOPHILS # 0.14 x10^3/uL (0.04-0.54); MCHC 32.5 g/dl (32.3-36.5); RDW 13.2 % (12.2-16.6)
[2024-12-18 07:08] LABS: ABSOLUTE IMMATURE GRANULOCYTES 0.02 x10^3/uL (0.0-0.031); IMMATURE PLATELET FRACTION # 16.60 x10^3/uL; MEAN CELL VOLUME 91.1 fl (79.0-92.2); MEAN PLT VOLUME 11.4 fl (9.4-12.4); MONOCYTE # 0.73 x10^3/uL (0.30-0.82); MONOCYTE % 13.0 % (5.3-12.2)
[2024-12-18 08:08] LABS: GLUCOSE,RANDOM 89.0 mg/dL (74-106)
[2024-12-18 08:09] LABS: TOT PROT 5.7 g/dl (6.4-8.2)
[2024-12-18 08:10] LABS: CO2 26.0 mmol/L (21-32)
[2024-12-18 08:11] LABS: ALK PHOS 74.0 U/L (40-150)
[2024-12-18 08:14] LABS: SGOT/AST 18.0 U/L (5-34); SGPT/ALT 16.0 U/L (0-55)
[2024-12-18 08:15] LABS: CREATININE 0.91 mg/dL (0.55-1.3)
[2024-12-19] MEDS: ACETAMINOPHEN 1000 MG/100 ML BAG IVPB PRN (00:15)
[2024-12-19] MEDS: LIDOCAINE 5% TOPICAL PATCH TP SCH (06:14)
[2024-12-19 07:49] LABS: ABSOLUTE IMMATURE GRANULOCYTES 0.03 x10^3/uL (0.0-0.031); BASOPHILS # 0.06 x10^3/uL (0.01-0.08); EOSINOPHIL % 1.9 % (0.8-7.0); EOSINOPHILS # 0.14 x10^3/uL (0.04-0.54); MCHC 32.5 g/dl (32.3-36.5); MEAN CELL VOLUME 89.5 fl (79.0-92.2); MEAN PLT VOLUME 10.2 fl (9.4-12.4); MONOCYTE # 0.84 x10^3/uL (0.30-0.82); MONOCYTE % 11.5 % (5.3-12.2); RDW 13.2 % (12.2-16.6)
[2024-12-19 08:18] LABS: GLUCOSE,RANDOM 89.0 mg/dL (74-106); TOT PROT 5.9 g/dl (6.4-8.2)
[2024-12-19 08:19] LABS: CO2 26.0 mmol/L (21-32)
[2024-12-19 08:21] LABS: ALK PHOS 77.0 U/L (40-150)
[2024-12-19 08:23] LABS: SGOT/AST 19.0 U/L (5-34); SGPT/ALT 20.0 U/L (0-55)
[2024-12-19 08:24] LABS: CREATININE 0.95 mg/dL (0.55-1.3)
[2024-12-19] MEDS: PATIENT'S OWN MEDICATION (NON-FORMULARY) (Meloxicam [Meloxicam] 15 MG) PO SCH (20:53)
[2024-12-19] MEDS: LIDOCAINE PATCH REMOVAL MC SCH (22:09)
[2024-12-20 07:45] LABS: MCHC 32.7 g/dl (32.3-36.5); MEAN CELL VOLUME 89.3 fl (79.0-92.2); MEAN PLT VOLUME 11.1 fl (9.4-12.4); RDW 13.2 % (12.2-16.6)
[2024-12-20 09:11] LABS: GLUCOSE,RANDOM 84.0 mg/dL (74-106)
[2024-12-20 09:13] LABS: CO2 25.0 mmol/L (21-32)
[2024-12-20 09:16] LABS: CREATININE 0.84 mg/dL (0.55-1.3)
[2024-12-21 07:28] LABS: MCHC 33.4 g/dl (32.3-36.5); MEAN CELL VOLUME 88.0 fl (79.0-92.2); MEAN PLT VOLUME 10.5 fl (9.4-12.4); RDW 13.2 % (12.2-16.6)
[2024-12-21 08:12] VITALS: RESP 18
[2024-12-21 09:06] LABS: GLUCOSE,RANDOM 90.0 mg/dL (74-106)
[2024-12-21 09:07] LABS: CO2 24.0 mmol/L (21-32)
[2024-12-21 09:11] LABS: CREATININE 0.84 mg/dL (0.55-1.3)
[2024-12-21 11:19] VITALS: BP 121/71; PULSE 77; TEMP 98.8
== END 2024-12-21 17:16 | DRG 57 ==
LOC: JER 14:42 → JERBED 18:51 → J8W 20:38 → OBSVTOIN 12-15 08:16 → J4S 12-15 09:55
PROVIDERS: ADMIT Internal Medicine; ATTEND Internal Medicine
DX: G91.2 (Idiopathic) normal pressure hydrocephalus (principal); E03.9 Hypothyroidism, unspecified; I11.0 Hypertensive heart disease with heart failure; E78.5 Hyperlipidemia, unspecified; M48.061 Spinal stenosis, lumbar region without neurogenic claudication; K59.00 Constipation, unspecified; M54.10 Radiculopathy, site unspecified; K80.20 Calculus of gallbladder without cholecystitis without obstruction; N20.0 Calculus of kidney
CPT/HCPCS: 36415; 70450-TC; 70496-TC; 70498-TC; 70551-TC; 72131-TC; 72148-TC; 72192-TC; 80048; 80053; 80061; 81003; 82550; 82962; 83036; 83735; 84100; 84484; 85025; 85027; 85610; 85730; 86850; 86900; 86901; 87637-QW; 93005; 93010; 93306-TC; 93970-TC; 97116-GP; 97161-GP; 99285-25; G0378; Q9967